=== PATIENT | male | born 1960 | race Caucasian/White ===

== ENCOUNTER 2017-02-08 02:20 | Observation (INO) | payer BC ==
[2017-02-08] MEDS ORDERED: DILTIAZEM 25MG/5ML VIAL IV ONE (02:32)
--- NOTE | 2017-02-08 02:35 | Emergency Department Record ---
History of Present Illness - General Chief Complaint: Chest Pain Stated Complaint: CHEST TIGHTNESS Time Seen by Provider: 02/08/17 02:27 Source: Patient Mode of Arrival: Ambulatory Limitations: No limitations - History of Present Illness Initial Comments: The patient is here due to a one hour hx of chest tightness and palpitations. He has had similar issues in the past with rapid A fib. The patient was here in Aug with the same issues and did get admitted to the hospital. He was eventually transferred for cardioversion. The patient did take a full dose of Aspirin at the onset. MD Complaint: Chest pain Onset/Timin -: Hour(s) Onset: During rest Pain Location: Substernal - Related Data Home Medications Medication Instructions Recorded Confirmed Last Taken Nebivolol HCl [Bystolic] 10 mg PO DAILY 08/27/15 08/27/15 08/26/15 Warfarin Sodium [Warfarin Sodium] 1 mg PO DAILY 08/27/15 08/27/15 Unknown Warfarin Sodium [Warfarin Sodium] 5 mg PO QHS 08/27/15 08/27/15 Unknown Allergies Allergy/AdvReac Type Severity Reaction Status Date / Time Penicillins Allergy Intermediate HIVES Verified 08/27/15 14:19 Tetracyclines Allergy Intermediate PT UNSURE Verified 08/27/15 14:19 OF REACTION Review of Systems Constitutional: Denies: Chills, Fever Eyes: Denies: Eye discharge ENT: Denies: Congestion Respiratory: Denies: Cough Cardiovascular: Denies: Arrhythmia, Chest pain Endocrine: Denies: Fatigue Gastrointestinal: Denies: Abdominal pain Genitourinary: Denies: Dysuria Musculoskeletal: Denies: Back pain Skin: Denies: Bruising Past Medical History - SOCIAL HISTORY Smoking Status: Former smoker - RESPIRATORY Hx Respiratory Disorders: No - CARDIOVASCULAR Hx Cardio Disorders: Yes Hx Abnormal EKG: Yes Hx Deep Vein Thrombosis: Yes Hx Irregular Heartbeat: Yes Comment:: pulmonary embolism - NEURO Hx Neuro Disorders: No - GI Hx GI Disorders: Yes Hx Reflux: Yes Hx Ulcer: Yes - Hx Genitourinary Disorders: No - ENDOCRINE Hx Endocrine Disorders: Yes Hx Diabetes: Yes (type 2) - MUSCULOSKELETAL Hx Musculoskeletal Disorders: No - PSYCH Hx Psych Problems: No - HEMATOLOGY/ONCOLOGY Hx Hematology/Oncology Disorders: Yes Hx Cancer: Yes (basal cell in catholic) Hx Chemotherapy: No Hx Radiation Therapy: No Family Medical History Hx Diabetes: Father, Mother Hx Heart Disease: Mother Physical Exam - General General Appearance: Alert, Oriented x3, Cooperative, No acute distress - Head Head exam: Atraumatic, Normocephalic, Normal inspection - Eye Eye exam: Normal appearance, PERRL - ENT Throat exam: Normal inspection. negative: Tonsillar erythema, Tonsillar exudate - Neck Neck exam: Normal inspection, Full ROM. negative: Tenderness - Respiratory Respiratory exam: Normal lung sounds bilaterally. negative: Respiratory distress - Cardiovascular Cardiovascular Exam: Irregular rhythm, Tachycardia. negative: Regular rate - GI/Abdominal GI/Abdominal exam: Soft, Normal bowel sounds. negative: Tenderness - Extremities Extremities exam: Normal inspection, Full ROM, Normal capillary refill. negative: Tenderness - Neurological Neurological exam: Alert, Normal gait. negative: Abnormal gait, Motor sensory deficit - Psychiatric Psychiatric exam: negative: Anxious, Depressed Course Vital Signs 02/08/17 02:25 Temperature 97.9 F Pulse Rate [ 152 H Pulse Ox Probe] Respiratory 20 Rate Blood Pressure 140/126 [Left Arm] Pulse Ox 97 - Reevaluation(s) Reevaluation #1: The patient is doing much better at this time. His HR is now 90-100 and he feels much better. His chest discomfort is almost gone at this time. His BP is also improved to 139/87. 02/08/17 02:48 02/08/17 02:49 Reevaluation #2: The patient is doing very well at this time. His HR is well controlled and he still is feeling VERY mild chest discomfort at a 1/10. I believe the discomfort may be just the irregular palpitations that the patient is experiencing. He denies any SOB, ANGELIA, sweating or nausea. Upon further questioning of the patient he did not need electrical cardioversion after he was transferred to [facility] [place] ago and converted back to NSR on his own. 02/08/17 03:26 Reevaluation #3: 2nd EKG: Afib at 107, LAFB, Prob LVH, Neg for ischemic changes. 02/08/17 03:28 Reevaluation #4: The patient is doing very well. He does agree to the admission to the hospital. We will admit him to Dr. Loving. 02/08/17 03:44 Medical Decision Making - Data Complexity MDM Data: Labs Ordered and/or Reviewed, X-Ray Ordered and/or Reviewed, EKG Ordered and/or Reviewed - Lab Data Result diagrams: 02/08/17 02:30 02/08/17 02:30 - EKG Data -: EKG Interpreted by Me (Rapid A fib at 150's. ) EKG: Unchanged From Previous, Abnormal EKG - Radiology Data Radiology results: Report reviewed (CXR: No acute dz.) Disposition Disposition: Admit Clinical Impression: Atrial fibrillation with rapid ventricular response Disposition: Still a Patient at [facility] Decision to Admit: Admit from ER Decision to Admit Date: 02/08/17 Decision to Admit Time: 03:45 Accepting Physician: Fabienne Time Discussed w/Accepting Physician: 03:45 Condition: (2) Stable Forms: Patient Portal Access Time of Disposition: 03:45
[2017-02-08 02:44] LABS: BASO % 0.4 % (0-6); HEMATOCRIT 46.8 % (42.0-52.0); HEMOGLOBIN 16.5 gm/dl (14.0-18.0); LYMPH % 32.6 % (16-45); MEAN CELL VOLUME 84.6 fl (81-97); MEAN CORPUSCULAR HEMOGLOBIN 29.8 pg (27-33); MEAN CORPUSCULAR HGB CONC 35.3 g/dl (32-36); MEAN PLATELET VOLUME 10.3 fl (7.4-10.4); PLATELET COUNT 334 K/uL (130-400); RED BLOOD COUNT 5.53 M/uL (4.40-5.70); RED CELL DISTRIBUTION WIDTH 13.3 % (11.5-14.5); WHITE BLOOD COUNT W/O DIFF 11.1 K/uL (4.2-12.2)
[2017-02-08] MEDS ORDERED: DILTIAZEM HCL 125 MG in 0.9 % SODIUM CHLORIDE 100ML 100 ML IV SCH (02:45)
[2017-02-08 02:55] LABS: ANION GAP 9.7 (7-16); BLOOD UREA NITROGEN 13 mg/dL (9-20); CARBON DIOXIDE 25.3 mmol/L (22-30); CREATINE PHOSPHOKINASE 83 U/L (55-170); CREATININE 0.7 mg/dL (0.66-1.25); EST GLOMERULAR FILTRATION RATE > 60 ml/min; GLUCOSE,RANDOM 369 mg/dL (70-110)
[2017-02-08 02:57] LABS: INR 1.19; PARTIAL THROMBOPLASTIN TIME 28.5 SECONDS (24.5-39.1); PROTHROMBIN TIME (PATIENT) 13.4 SECONDS (9.5-12.1)
[2017-02-08] MEDS ORDERED: MORPHINE SULFATE 5 MG/ML PFS IVP ONE ×2 (02:57→03:24)
[2017-02-08 03:07] LABS: CKMB 1.2 ug/L (0-6)
[2017-02-08 03:08] LABS: TROPONIN I < 0.012 ng/mL (0.00-0.034)
[2017-02-08] MEDS ORDERED: ONDANSETRON HCL IV 4 MG/2 ML VIAL IVP ONE (03:25)
[2017-02-08] MEDS ORDERED: HEPARIN SODIUM 1000 UNIT/1 ML 10ML VIAL IVP ONE ×3 (03:25→18:43)
[2017-02-08] MEDS ORDERED: HEPARIN SODIUM/D5W 25,000 UNITS in DEXTROSE 5 % IN WATER 1 BAG IV SCH ×2 (03:30)
[2017-02-08] MEDS ORDERED: ACETAMINOPHEN 500 MG TABLET PO PRN (04:33)
[2017-02-08 07:43] LABS: CKMB 0.9 ug/L (0-6)
[2017-02-08 07:45] LABS: TROPONIN I < 0.012 ng/mL (0.00-0.034)
[2017-02-08] MEDS ORDERED: WARFARIN 5 MG TAB PO ONE (09:07)
[2017-02-08] MEDS: ASPIRIN 325 MG TAB ENTERIC-COATED PO SCH (09:48)
[2017-02-08] MEDS ORDERED: LEVEMIR FLEXTOUCH 100 UNIT/ML INSULIN PEN SQ SCH (10:00)
[2017-02-08] MEDS: DILTIAZEM HCL 120 MG ER CAPSULE PO SCH (10:08)
[2017-02-08 10:42] LABS: INR 1.19; PARTIAL THROMBOPLASTIN TIME 32.8 SECONDS (24.5-39.1); PROTHROMBIN TIME (PATIENT) 13.5 SECONDS (9.5-12.1)
[2017-02-08] MEDS: HEPARIN SODIUM/D5W 25,000 UNITS in DEXTROSE 5 % IN WATER 1 BAG IV SCH ×4 (11:17→23:02)
[2017-02-08] MEDS: NEBIVOLOL HCL 10 MG PO SCH (11:41)
[2017-02-08] MEDS: NOVOLOG FLEXPEN (INSULIN ASPART) 100 UNITS/ML SQ SCH ×2 (12:11→18:29)
[2017-02-08 14:57] LABS: CKMB 0.8 ug/L (0-6)
[2017-02-08 15:02] LABS: TROPONIN I < 0.012 ng/mL (0.00-0.034)
[2017-02-09] MEDS ORDERED: HEPARIN SODIUM 1000 UNIT/1 ML 10ML VIAL IVP ONE ×2 (03:09→08:09)
[2017-02-09 07:06] LABS: INR 1.49; PROTHROMBIN TIME (PATIENT) 16.8 SECONDS (9.5-12.1)
--- NOTE | 2017-02-09 07:49 | RADIOLOGY REPORT ---
EXAM: PORTABLE CHEST HISTORY: PATIENT HAS CHEST PAIN. TECHNIQUE: A single AP portable view of the chest was provided with a comparison study dated 07/04/08. FINDINGS: The cardiac silhouette is magnified. Mild tortuosity of the thoracic aorta is noted. The ayad appear unremarkable. There is no radiographic evidence of a focal infiltrate, pleural effusion, or pneumothorax. IMPRESSION: STABLE RADIOGRAPHIC APPEARANCE OF THE CHEST WITH RESPECT TO THE PRIOR EXAMINATION. JOB NUMBER: [id number] MTDD
[2017-02-09] MEDS: NOVOLOG FLEXPEN (INSULIN ASPART) 100 UNITS/ML SQ SCH ×2 (08:00→12:32)
[2017-02-09] MEDS ORDERED: WARFARIN 5 MG TAB PO ONE (09:03)
[2017-02-09] MEDS ORDERED: LEVEMIR FLEXTOUCH 100 UNIT/ML INSULIN PEN SQ SCH (10:00)
[2017-02-09] MEDS: ASPIRIN 325 MG TAB ENTERIC-COATED PO SCH (10:26)
[2017-02-09] MEDS: DILTIAZEM HCL 120 MG ER CAPSULE PO SCH (10:26)
[2017-02-09] MEDS: NEBIVOLOL HCL 10 MG PO SCH (14:45)
--- NOTE | 2017-02-09 15:14 | History and Physical Report ---
DATE OF EVALUATION: 02/08/2017 at about 9 a.m. CHIEF COMPLAINT: This 56-year-old male presented to the Emergency Department today at about 2 a.m. He stated about an hour before coming in, he felt his heart racing and he felt palpitations, maybe some discomfort in his chest. He presented to the Emergency Department and seen by Dr. Murphy, who slowed his heart rate down with a Cardizem drip, started on a heparin drip, and admitted him into the hospital for serial cardiac enzymes. His primary is Dr. Keenan. He has not seen a erp programmer in a long time, and I am not sure if he has seen one in 2015, but he has not followed up with them. Patient is noncompliant with taking medications. His Coumadin levels are low. He states he has not had his Levemir insulin for 3 weeks, and he just does not like taking medications. He took his full dose of Coumadin when this episode of fast heart rate came in today at 2 a.m. PAST MEDICAL HISTORY: He has a history of atrial fibrillation in the past. In August 2015, he went to [facility]. They were going to convert him to sinus rhythm, however he converted on his own and he was placed on Coumadin. He has been on Coumadin for a long time for blood clots in his legs and maybe in his chest too. He had a pulmonary embolism x 2 in 2007 and 2009. He has had history of atrial fibrillation. He also had deep venous thrombosis in his leg in the past. He has hypertension and diabetes mellitus. GERD. Stomach ulcer in the past. Diabetes type 2. 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 PAST SURGICAL HISTORY: Femoral artery surgery. Basal cell removed from his skin cancer on the head. Tonsils as a child. MEDICATIONS ON ADMISSION: Coumadin 5 mg to 6 mg a day. His doctor has told him to take 6, but he has been at 5. I am questioning how reliable he is at taking it. Bystolic 10 mg daily. Levemir insulin 70 units in the morning; however, he has not taken that for 3 weeks. ALLERGIES: Penicillin and tetracycline. FAMILY PSYCHOSOCIAL HISTORY: He drinks 2 fifths in a week. He is a former smoker. Denies any illegal drug use. FAMILY HISTORY: Father and mother have diabetes, and heart disease with mother. REVIEW OF SYSTEMS: HEENT: No upper respiratory infection symptoms, cough, cold, or congestion. Cardiovascular: See Chief Complaint. He had irregular heart rate, fast rhythm, and he has had atrial fibrillation in the past, and some chest discomfort with the fast heart rate. Respiratory: No cough, cold or congestion. Gastrointestinal: No nausea, vomiting, diarrhea, black stools, or bloody stools. He is overweight. Genitourinary: No dysuria, hematuria, frequency, or burning on urination. Musculoskeletal: He has some diffuse joint pain, but he is moving all 4 extremities. Neurologic: No CVA, paralysis, or paresthesias. Endocrine: He has diabetes type 2. Integument: No rash, ulcers, changes in moles, or yellow skin. PHYSICAL EXAMINATION: VITAL SIGNS: Height is 5'10". Weight is 296 pounds. Temperature 98.1. Pulse 83. Blood pressure 121/90. Respiratory rate 20. Pulse ox 98% on room air. HEENT: Pupils equal, round, and reactive to light and accommodation. Extraocular muscles intact. Throat is clear. Nose is clear. Tympanic membranes deluca. NECK: Supple. No jugular venous distention. No hepatojugular reflux. No carotid bruits. Thyroid is smooth. CARDIOVASCULAR: Irregular rate and rhythm. No rubs, clicks or gallops. His rate is now between 80 and 90. RESPIRATORY: Clear to auscultation. Breath sounds equal bilaterally. ABDOMEN: Soft, nontender, no hepatosplenomegaly. No masses or tenderness. Bowel sounds active. No bruits. He is overweight. EXTREMITIES: No pitting edema. No cyanosis or clubbing. Full range of motion. Peripheral pulses good. BREASTS: Normal male breasts. GENITALIA: Deferred. RECTAL: Deferred. NEUROLOGIC: Cranial nerves II-XII intact. No gross deficits. Sensation normal. Strength normal. Deep tendon reflexes equal bilaterally. Babinski is negative. MENTAL STATUS: Alert and oriented x3. IMPRESSION: 1. Atrial fibrillation with a fast response, controlled with Cardizem drip. Will switch over to oral Cardizem 120 mg CD and once a day. Stop the Cardizem drip. 2. Diabetes mellitus type 2. He is noncompliant. Has not had his Levemir insulin in 3 weeks. 3. Coumadin therapy, which he is probably not compliant with this too. He takes this for probably 2 things: One, he has had multiple PEs and a DVT many years ago in 2007 and 2009, and because of his atrial fibrillation episodes. 4. Hypertension. 5. Alcohol abuse. PLAN: Will discontinue the Cardizem drip and start Cardizem oral CD 120. Will start his Levemir insulin back up and coverage to scale. Will consult Cardiology tomorrow. STEVE
--- NOTE | 2017-02-09 15:31 | Discharge Note ---
VTE H&P Assessment - Risk for VTE Risk for VTE: Yes Risk Level: Moderate Risk Assessment Date: 02/08/17 Risk Assessment Time: 09:00 VTE Orders Placed or Will Be Placed: Yes Discharge Medications - Discharge Medications Home Medications: Ambulatory Orders Nebivolol HCl [Bystolic] 10 mg PO DAILY 08/27/15 [Last Taken 08/26/15] Warfarin Sodium 1 mg PO DAILY 08/27/15 [Last Taken Unknown] Warfarin Sodium 5 mg PO QHS 08/27/15 [Last Taken Unknown] Acetaminophen [Tylenol 500Mg Tab] 500 mg PO Q6H PRN #0 tablet 02/09/17 [Last Taken Unknown] Diltiazem HCl [Cardizem Cd] 120 mg PO DAILY #30 cap.er.24h 02/09/17 [Last Taken Unknown] Insulin Detemir [Levemir Flextouch] 70 unit SQ QAM syringe 02/09/17 [Last Taken Unknown] Discharge Note - Date Date of Discharge Note: 02/09/17 Disposition: Home, Self-Care Condition: (1) Good Additional Instructions: follow up with Dr. zazueta in one week follow up with the coumadin clinic in one week in [place] stop alcohol Prescriptions: Diltiazem HCl [Cardizem Cd] 120 mg PO DAILY #30 cap.er.24h Forms: Patient Portal Access Activity at Discharge: Increase Activity as Tolerated
--- NOTE | 2017-02-09 15:56 | History & Physical ---
History of Present Illness - Date of Service Date of Service for History & Physical: 02/09/17 - History of Present Illness Admitting Diagnosis: 1. Afib with RVR. Travel Screening - Travel/Exposure Within Last 30 Days Have you traveled within the last 30 days?: No - Travel/Exposure Within Last Year Have you traveled outside the [place] in the last year?: No - Additonal Travel Details Have you been exposed to anyone with a communicable illness?: No - Travel Symptoms Symptom Screening: None Review of Systems Constitutional: Denies: Chills, Fever Eyes: Denies: Eye discharge ENT: Denies: Congestion Respiratory: Denies: Cough Cardiovascular: Denies: Arrhythmia, Chest pain Endocrine: Denies: Fatigue Gastrointestinal: Denies: Abdominal pain Genitourinary: Denies: Dysuria Musculoskeletal: Denies: Back pain Skin: Denies: Bruising Past Medical History - SOCIAL HISTORY Smoking Status: Former smoker Alcohol Use: Heavy Alcohol Use Comment: pt states he drinks "a couple fifths a week" Drug Use: None - RESPIRATORY Hx Respiratory Disorders: No Hx Pulmonary Embolism: Yes (x2 2007, and 2009) - CARDIOVASCULAR Hx Cardio Disorders: Yes Hx Abnormal EKG: Yes Hx Deep Vein Thrombosis: Yes Hx Irregular Heartbeat: Yes Comment:: pulmonary embolism - NEURO Hx Neuro Disorders: No - GI Hx GI Disorders: Yes Hx Reflux: Yes Hx Ulcer: Yes - Hx Genitourinary Disorders: No - ENDOCRINE Hx Endocrine Disorders: Yes Hx Diabetes: Yes (type 2) - MUSCULOSKELETAL Hx Musculoskeletal Disorders: No - PSYCH Hx Psych Problems: No - HEMATOLOGY/ONCOLOGY Hx Hematology/Oncology Disorders: Yes Hx Cancer: Yes (basal cell in quaker) Hx Chemotherapy: No Hx Radiation Therapy: No Family Medical History Any Significant Family History?: Yes Hx Diabetes: Father, Mother Hx Heart Disease: Mother H&P Meds/Allergies - Allergies Allergies: Allergies Allergy/AdvReac Type Severity Reaction Status Date / Time Penicillins Allergy Intermediate HIVES Verified 08/27/15 14:19 Tetracyclines Allergy Intermediate PT UNSURE Verified 08/27/15 14:19 OF REACTION - Home Medications Home Medications Medication Instructions Recorded Confirmed Last Taken Nebivolol HCl [Bystolic] 10 mg PO DAILY 08/27/15 08/27/15 08/26/15 Warfarin Sodium 1 mg PO DAILY 08/27/15 08/27/15 Unknown Warfarin Sodium 5 mg PO QHS 08/27/15 08/27/15 Unknown Previous Rx's Medication Instructions Recorded Acetaminophen [Tylenol 500Mg Tab] 500 mg PO Q6H PRN #0 tablet 02/09/17 Diltiazem HCl [Cardizem Cd] 120 mg PO DAILY #30 cap.er.24h 02/09/17 Insulin Detemir [Levemir Flextouch] 70 unit SQ QAM syringe 02/09/17 - Active Medications Active Medications: Current Medications Acetaminophen (Tylenol 500mg Tab) 500 mg PO Q6H PRN PRN Reason: PAIN/TEMP Last Admin: 02/08/17 13:49 Dose: 500 mg Aspirin (Ecotrin (Ec)) 325 mg PO DAILY [facility] Last Admin: 02/09/17 10:26 Dose: 325 mg Diltiazem HCl (Cardizem Cd) 120 mg PO DAILY [facility] Last Admin: 02/09/17 10:26 Dose: 120 mg Heparin Sodium/Dextrose 25,000 (units/ Dextrose) 500 mls @ 24 mls/hr IV TITRATE ALEXANDRO; 1,200 UNITS/HR PRN Reason: Protocol Last Titration: 02/09/17 02:45 Dose: 1,600 units/hr Insulin Aspart (Novolog Flexpen) 1 unit SQ TIDINS [facility] PRN Reason: Protocol Last Admin: 02/09/17 12:32 Dose: 3 unit Insulin Detemir (Levemir Flextouch) 70 unit SQ QAM [facility] Last Admin: 02/09/17 10:27 Dose: 70 unit Non-Formulary Medication (Nebivolol Hcl [Bystolic]) 10 mg PO DAILY [facility] Last Admin: 02/09/17 14:45 Dose: Not Given Physical Exam - Vital Signs Vital Signs: Vital Signs - Last 24 Hrs Temp Pulse Resp BP BP Pulse Ox 02/09/17 09:00 97.6 F 71 18 146/90 95 02/09/17 05:51 97.5 F L 72 16 142/95 96 02/09/17 05:45 96 02/08/17 23:00 97.5 F L 70 12 129/69 97 02/08/17 21:00 71 20 02/08/17 19:40 97.6 F 72 16 112/66 96 02/08/17 18:19 97 02/08/17 18:00 78 18 111/65 96 - General General Appearance: Alert, Oriented x3, Cooperative, No acute distress Limitations: No limitations - Head Head exam: Atraumatic, Normocephalic, Normal inspection - Eye Eye exam: Normal appearance, PERRL - ENT Throat exam: Normal inspection. negative: Tonsillar erythema, Tonsillar exudate - Neck Neck exam: Normal inspection, Full ROM. negative: Tenderness - Respiratory Respiratory exam: Normal lung sounds bilaterally. negative: Respiratory distress - Cardiovascular Cardiovascular Exam: Irregular rhythm, Tachycardia. negative: Regular rate - GI/Abdominal GI/Abdominal exam: Soft, Normal bowel sounds. negative: Tenderness - Extremities Extremities exam: Normal inspection, Full ROM, Normal capillary refill. negative: Tenderness - Neurological Neurological exam: Alert, Normal gait. negative: Abnormal gait, Motor sensory deficit - Psychiatric Psychiatric exam: negative: Anxious, Depressed Results - Labs Result Diagrams: 02/08/17 02:30 02/08/17 02:30 Labs Last 24 Hours: Laboratory Results - last 24 hr 02/08/17 02/08/17 02/08/17 17:30 17:40 21:52 PT INR APTT 36.90 POC Glucose 296 H 312 H 02/09/17 02/09/17 02/09/17 00:50 06:30 06:30 PT 16.8 H INR 1.49 APTT 43.60 H 45.70 H POC Glucose 02/09/17 02/09/17 12:26 13:40 PT INR APTT Cancelled POC Glucose 261 H VTE H&P Assessment - Risk for VTE Risk for VTE: Yes Risk Level: Moderate Risk Assessment Date: 02/08/17 Risk Assessment Time: 09:00 VTE Orders Placed or Will Be Placed: Yes
--- NOTE | 2017-02-09 16:01 | Discharge Note ---
VTE H&P Assessment - Risk for VTE Risk for VTE: Yes Risk Level: Moderate Risk Assessment Date: 02/08/17 Risk Assessment Time: 09:00 VTE Orders Placed or Will Be Placed: Yes Discharge Medications - Discharge Medications Prescriptions: Diltiazem HCl [Cardizem Cd] 120 mg PO DAILY #30 cap.er.24h Home Medications: Ambulatory Orders Nebivolol HCl [Bystolic] 10 mg PO DAILY 08/27/15 [Last Taken 08/26/15] Warfarin Sodium 1 mg PO DAILY 08/27/15 [Last Taken Unknown] Warfarin Sodium 5 mg PO QHS 08/27/15 [Last Taken Unknown] Acetaminophen [Tylenol 500Mg Tab] 500 mg PO Q6H PRN #0 tablet 02/09/17 [Last Taken Unknown] Diltiazem HCl [Cardizem Cd] 120 mg PO DAILY #30 cap.er.24h 02/09/17 [Last Taken Unknown] Insulin Detemir [Levemir Flextouch] 70 unit SQ QAM syringe 02/09/17 [Last Taken Unknown] Discharge Note - Date Date of Discharge Note: 02/09/17 Additional Instructions: follow up with Dr. zazueta in one week. They will call you with appointment time and date. follow up with the coumadin clinic in one week in [place] Stop coumadin until after dental work. Restart Coumadin 6 mg after dental work. stop alcohol Wear compression socks Cardizem CD daily. Start tomorrow. Follow up with dr Lane in one month. Prescriptions: Diltiazem HCl [Cardizem Cd] 120 mg PO DAILY #30 cap.er.24h Forms: Patient Portal Access Activity at Discharge: Increase Activity as Tolerated
--- NOTE | 2017-02-10 15:21 | Medical Records Consult ---
DATE OF CONSULTATION: 02/09/17 HISTORY:Mr. Mahendra Andrews is a 56-year-old male who has had atrial fibrillation for many, many years. He unfortunately drinks about two- fifths of alcohol on a weekly basis and is retired from [employer]. Over the weekend, he imbibed a significant amount more of alcohol than usual. He was unsure of the exact volume. He did develop atrial fibrillation with a rapid ventricular response and with the use of IV Cardizem he converted back to normal sinus rhythm. By the time I saw the patient he had maintained sinus rhythm. He tells me he was in [facility] a year ago and he had a Cardiolite stress test and an echocardiogram; none of these were available today but he tells me that his valves were reported as being normal and that he didn't have any evidence of coronary artery disease. MEDICATIONS: His current medicines are well-documented on the chart by Dr. Loving , which include; Amlodipine 10 mg a day Omeprazole 20 mg a day Potassium Chloride 10 mEq b.i.d. Quinapril Hydrochlorothiazide 12.5 Imodium as needed. Other [id number] medications. FURTHER HISTORY: He has no significant gastrointestinal, neuromuscular, genitourinary disease. He does have diabetes mellitus, not well-controlled. He has no musculoskeletal problems. PHYSICAL EXAMINATION: GENERAL: Well-nourished, well-hydrated, obese, male resting comfortably in bed. Monitor demonstrated normal sinus rhythm with occasional PACs. HEENT: Unremarkable. RESPIRATORY: The patient has normal breath sounds. No rales or rhonchi. CARDIAC: Reveals regular rate and rhythm with no significant cardiac murmurs. The patient has brawny edema of his lower extremities 1+. ABDOMEN: No palpable liver or spleen. IMPRESSION: PAROXYSMAL ATRIAL FIBRILLATION IN A PATIENT THAT HAS HEAVY ALCOHOL INGESTION. RECOMMENDATIONS: 1. The patient really needs to cut back on his alcohol to no more than 14 one ounce drinks per week and have at least two days where he has no alcohol at all or go to AA and stop drinking entirely. None of these are going to happen. 2. We will try to retrieve the echocardiogram and the stress test from [facility] so that we have a complete chart. 3. The best solution for this patient is to go on Betapace, which will give us a better chance of not going back in atrial fibrillation but to do this we need to monitor the QT interval. The patient is unwilling to stay in the hospital and have that done. 4. The patient needs to have the Coumadin therapeutic. His current INR is 1.6. I suggest that he be enrolled in the [facility] where they can do a fingerstick and immediately tell him the next dose of medicines that are necessary. The patient is unwilling to stay in the hospital for Betapace so discharge him on the Cardizem. We will be happy to see him in the office in a month to see if he has maintained rhythm but I would stress that with his alcohol ingestion, the Cardizem is a fairly ineffective way of keeping him in rhythm. He has a much better chance with Betapace in staying in rhythm and if he keeps drinking, he will keep going in and out of atrial fibrillation and no drug will be effective eventually. Eleazar Lane D.O. Date & Time JOB NUMBER: [id number] MTDD
== END 2017-02-09 16:15 | disposition home or self-care (01) ==
LOC: ER 02:20 → MEDSURG 04:12
PROVIDERS: ADMIT Emergency Medicine; ATTEND Emergency Medicine
DX: I48.91 Unspecified atrial fibrillation (principal); Z79.01 Long term (current) use of anticoagulants; E11.9 Type 2 diabetes mellitus without complications; Z79.4 Long term (current) use of insulin; F10.10 Alcohol abuse, uncomplicated; Z86.711 Personal history of pulmonary embolism
CPT/HCPCS: 36416; 71010; 80048; 82550; 82553; 82948; 84484; 85025; 85610; 85730; 93005; 93010; 94760; 94761; 96365; 96366; 96375; 96376; 99217; 99220; 99285; J2405

== ENCOUNTER 2017-10-13 19:03 | Observation (INO) | payer BC ==
[2017-10-13] MEDS ORDERED: ASPIRIN 81 MG CHEWABLE TABLET PO ONE (19:11)
[2017-10-13 19:21] LABS: BASO % 0.3 % (0-6); EOS % 2.2 % (0-6); HEMATOCRIT 47.6 % (42.0-52.0); HEMOGLOBIN 16.9 gm/dl (14.0-18.0); LYMPH % 22.8 % (16-45); MEAN CELL VOLUME 82.2 fl (81-97); MEAN CORPUSCULAR HGB CONC 35.5 g/dl (32-36); MEAN PLATELET VOLUME 9.9 fl (7.4-10.4); MONO % 7.7 % (0-9); PLATELET COUNT 400 K/uL (130-400); RED BLOOD COUNT 5.79 M/uL (4.40-5.70); RED CELL DISTRIBUTION WIDTH 13.5 % (11.5-14.5)
[2017-10-13 19:22] LABS: MEAN CORPUSCULAR HEMOGLOBIN 29.1 pg (27-33)
--- NOTE | 2017-10-13 19:25 | Emergency Department Record ---
History of Present Illness - General Chief Complaint: Chest Pain Stated Complaint: CHEST PAIN Time Seen by Provider: 10/13/17 19:10 Source: Patient Mode of Arrival: Ambulatory Limitations: No limitations - History of Present Illness Initial Comments: 57 yo male presents to ED for evaluation of chest pain symptoms and intermittent atrial fibrillation throughout the day. Patient reports that he felt dizzy and had palpitations around 10:00 AM. Patient reports that he has not been taking his bystolic and metroprolol for several months as prescribed. Patient does report that he takes coumadin for his atrial fibrillation symptoms. Patient also reports nuclear stress testing this past March, is unaware of the results. Patient denies fevers, chills, cough, or leg swelling symptoms. MD Complaint: Chest pain Onset/Timin -: Days(s) Pain Location: Substernal Severity: Moderate Quality: Aching Consistency: Intermittent Improves With: Medication-other Worsens With: Nothing Other Symptoms: Palpitations Treatments Prior to Arrival: Other - Related Data Home Medications Medication Instructions Recorded Confirmed Last Taken Sotalol HCl [Betapace] 80 mg PO BID 10/13/17 10/13/17 Unknown Allergies Allergy/AdvReac Type Severity Reaction Status Date / Time Penicillins Allergy Intermediate HIVES Verified 08/27/15 14:19 Tetracyclines Allergy Intermediate PT UNSURE Verified 08/27/15 14:19 OF REACTION clarithromycin [From Biaxin] Allergy HIVES Verified 10/13/17 19:06 Travel Screening - Travel/Exposure Within Last 30 Days Have you traveled within the last 30 days?: No Review of Systems Constitutional: Denies: Chills, Fever, Malaise, Night sweats Eyes: Denies: Eye discharge, Eye pain ENT: Denies: Congestion, Ear pain, Epistaxis Respiratory: Denies: Cough, Dyspnea Cardiovascular: Reports: Chest pain. Denies: Dyspnea on exertion Endocrine: Denies: Fatigue, Heat or cold intolerance Gastrointestinal: Denies: Abdominal pain, Nausea, Vomiting Genitourinary: Denies: Incontinence, Retention Musculoskeletal: Denies: Arthralgia, Back pain, Gout, Joint swelling Skin: Denies: Bruising, Change in color Neurological: Denies: Abnormal gait, Confusion, Headache Psychiatric: Denies: Anxiety Hematological/Lymphatic: Reports: Easy bleeding, Easy bruising. Denies: Anemia , Blood Clots Past Medical History - SOCIAL HISTORY Smoking Status: Former smoker Alcohol Use: Occasional Drug Use: None - RESPIRATORY Hx Respiratory Disorders: No Hx Pulmonary Embolism: Yes (x2 2008, and 2010) - CARDIOVASCULAR Hx Cardio Disorders: Yes Hx Abnormal EKG: Yes Hx Deep Vein Thrombosis: Yes Hx Irregular Heartbeat: Yes Comment:: pulmonary embolism - NEURO Hx Neuro Disorders: No - GI Hx GI Disorders: Yes Hx Reflux: Yes Hx Ulcer: Yes - Hx Genitourinary Disorders: No - ENDOCRINE Hx Endocrine Disorders: Yes Hx Diabetes: Yes (type 2) - MUSCULOSKELETAL Hx Musculoskeletal Disorders: No - PSYCH Hx Psych Problems: No - HEMATOLOGY/ONCOLOGY Hx Hematology/Oncology Disorders: Yes Hx Cancer: Yes (basal cell in [place]) Hx Chemotherapy: No Hx Radiation Therapy: No Family Medical History Any Significant Family History?: Yes Hx Diabetes: Father, Mother Hx Heart Disease: Mother Physical Exam - General General Appearance: Alert, Oriented x3, Cooperative, Mild distress Limitations: No limitations - Head Head exam: Atraumatic, Normocephalic, Normal inspection Head exam detail: negative: Abrasion, Contusion, English's sign, General tenderness, Hematoma, Laceration - Eye Eye exam: Normal appearance. negative: Conjunctival injection, Periorbital swelling, Periorbital tenderness, Scleral icterus - ENT Ear exam: negative: Auricular hematoma, Auricular trauma Nasal Exam: negative: Active bleeding, Discharge, Dried blood, Foreign body Mouth exam: negative: Drooling, Laceration, Muffled voice, Tongue elevation - Neck Neck exam: Normal inspection. negative: Meningismus, Tenderness - Respiratory Respiratory exam: Normal lung sounds bilaterally. negative: Respiratory distress, Rhonchi, Stridor, Wheezes - Cardiovascular Cardiovascular Exam: Normal rhythm, Normal heart sounds, Tachycardia - GI/Abdominal GI/Abdominal exam: Soft. negative: Distended, Rebound, Rigid, Tenderness - Rectal Rectal exam: Deferred - exam: Deferred - Extremities Extremities exam: Normal inspection. negative: Calf tenderness, Pedal edema, Tenderness - Back Back exam: Denies: CVA tenderness (R), CVA tenderness (L) - Neurological Neurological exam: Alert, Normal gait, Oriented X3 - Psychiatric Psychiatric exam: Normal affect, Normal mood - Skin Skin exam: Normal color. 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 Labs are otherwise grossly unremarkable for an acute process. CXR: No acute process Patient was updated on all results, will admit for further evaluation. Reevaluation #3: 10/13/17 20:10 Case was discussed with Leticia Skaggs, will admit for cardiac evaluation with consult to Dr. Blake. Medical Decision Making - Lab Data Result diagrams: 10/13/17 19:15 10/13/17 19:15 Disposition Disposition: Admit Clinical Impression: Chest pain Qualifiers: Chest pain type: unspecified Qualified Code(s): R07.9 - Chest pain, unspecified Atrial fibrillation Qualifiers: Atrial fibrillation type: paroxysmal Qualified Code(s): I48.0 - Paroxysmal atrial fibrillation Disposition: Still a Patient at [facility] Decision to Admit: Admit from ER Decision to Admit Date: 10/13/17 Decision to Admit Time: 20:12 Condition: (2) Stable Time of Disposition: 20:12 Quality - Quality Measures Quality Measures: N/A - Blood Pressure Screening Does Patient Have Any of the Following: Active Dx of HTN Blood Pressure Classification: Normal BP Reading Systolic Measurement: 109 Diastolic Measurement: 66 Screening for High Blood Pressure: Patient Exclusion, Hx of HTN [[id number]]
[2017-10-13 19:30] LABS: BLOOD UREA NITROGEN 10 mg/dL (6-20)
[2017-10-13 19:31] LABS: CREATININE 0.6 mg/dL (0.7-1.2); EST GLOMERULAR FILTRATION RATE > 60 mL/min; TOTAL PROTEIN 6.9 g/dL (6.6-8.7)
[2017-10-13 19:33] LABS: INR 2.04; PROTHROMBIN TIME (PATIENT) 22.2 SECONDS (9.5-12.1)
[2017-10-13 19:33] LABS: GLUCOSE,RANDOM 339 mg/dL (74-109)
[2017-10-13 19:36] LABS: ALB/GLOB RATIO 1.3 (1.1-1.8); ALBUMIN 3.9 g/dL (4.0-5.0); ALKALINE PHOSPHATASE 167 U/L (40-129); ALT/SGPT 17 U/L (<41); AST/SGOT 15 U/L (10.0-50.0); CREATINE PHOSPHOKINASE 57 U/L (39-308)
[2017-10-13 19:38] LABS: CKMB 2.3 ng/mL (<6.73)
[2017-10-13] MEDS ORDERED: NITROGLYCERIN 0.4MG SL TABLET #25 BTL SL PRN (21:41)
[2017-10-13] MEDS ORDERED: WARFARIN 5 MG TAB PO SCH (22:00)
[2017-10-13] MEDS: SOTALOL HCL 80 MG TABLET PO SCH (22:38)
[2017-10-13] MEDS: 0.9 % SODIUM CHLORIDE 1000ML 1,000 ML IV PRN (22:38)
--- NOTE | 2017-10-14 07:16 | RADIOLOGY REPORT ---
EXAM: CHEST, TWO VIEWS HISTORY: DIFFICULTY IN BREATHING. TECHNIQUE: Frontal and lateral views of the chest were performed. FINDINGS: The heart size is normal. The lung galloway are clear. The osseous structures are normal. Calcifications of the anterior longitudinal ligament. IMPRESSION: NO ACUTE DISEASE PROCESS. JOB NUMBER: [id number] MTDD
[2017-10-14] MEDS: 0.9 % SODIUM CHLORIDE 1000ML 1,000 ML IV PRN (08:44)
[2017-10-14] MEDS ORDERED: ASPIRIN 325 MG TAB ENTERIC-COATED PO SCH (10:00)
[2017-10-14] MEDS ORDERED: NEBIVOLOL HCL 5 MG PO SCH (10:00)
[2017-10-14] MEDS: SOTALOL HCL 80 MG TABLET PO SCH (10:25)
--- NOTE | 2017-10-14 13:13 | History & Physical ---
History of Present Illness - Date of Service Date of Service for History & Physical: 10/14/17 - History of Present Illness Admitting Diagnosis: Chest Pain. Intermittent Atrial Fibrillation History of Present Illness: 57yo male with CC of chest pain with palpitations. He has a history of atrial fibrillation, T2DM uncontrolled, HTN, GERD, DVT, Pulmonary embolism in 2007 which was a saddle emboli and again in 2009. Patient presented to the ED yesterday evening due to intermittent heart palpitations, heart racing and some left sided chest pain. He had been drinking whiskey the night prior and says he had about 6 shots. When he woke up the next morning, he says he could feel himself go into afib around 10am. He says he got worried when he started to feel light-headed and dizzy, but that resolved when his afib resolved. He had 1 more episode like this and decided to come to the ED. While in the ED, patient had EKG that showed him to be in sinus rhythm with rate of 102. No ST changes and no change from previous ekg on 05/13/17. 1st set of CE returned wnl range. CXR showed NAP. INR was therapeutic at 2.04 on coumadin 5mg daily. Patient was admitted for serial enzymes and cardiology was consulted. 10/14/17- Patient states since he arrived in ED he has not had any further episodes of racing heart beat, palpitations, or chest pain. he denies any further dizziness or feeling faint. He admits to not being compliant with either his pcp or agricultural equipment operator's recommendations. He says he has been taking his sotalol 80mg po bid and was also supposed to be taking lisinopril. He ran out of his lisinopril but had some samples of bystolic so took that instead. He says he wasn't taking that one every day, just when he remembered. He is also supposed to be taking a once weekly injection for his DM but has not taken this. He has not been to see his PCP for diabetes since early May. He says he does not follow the diabetic diet and has no intention of doing so. agricultural equipment operator: Dr. Blake pcp: Dr. Keenan Travel Screening - Travel/Exposure Within Last 30 Days Have you traveled within the last 30 days?: No - Travel/Exposure Within Last Year Have you traveled outside the [place] in the last year?: No - Additonal Travel Details Have you been exposed to anyone with a communicable illness?: No Review of Systems Constitutional: Denies: Chills, Fever, Malaise, Night sweats Eyes: Denies: Eye discharge, Eye pain ENT: Denies: Congestion, Ear pain, Epistaxis Respiratory: Denies: Cough, Dyspnea Cardiovascular: Reports: Arrhythmia, Chest pain, Palpitations. Denies: Dyspnea on exertion Endocrine: Denies: Fatigue, Heat or cold intolerance Gastrointestinal: Denies: Abdominal pain, Nausea, Vomiting Genitourinary: Denies: Incontinence, Retention Musculoskeletal: Denies: Arthralgia, Back pain, Gout, Joint swelling Skin: Denies: Bruising, Change in color Neurological: Denies: Abnormal gait, Confusion, Headache Psychiatric: Denies: Anxiety Hematological/Lymphatic: Reports: Easy bleeding, Easy bruising. Denies: Anemia , Blood Clots Past Medical History - SOCIAL HISTORY Smoking Status: Former smoker Alcohol Use: Occasional Drug Use: None - RESPIRATORY Hx Respiratory Disorders: No Hx Pulmonary Embolism: Yes (x2 2007, and 2009) - CARDIOVASCULAR Hx Cardio Disorders: Yes Hx Abnormal EKG: Yes Hx Deep Vein Thrombosis: Yes Hx Irregular Heartbeat: Yes Comment:: pulmonary embolism - NEURO Hx Neuro Disorders: No - GI Hx GI Disorders: Yes Hx Reflux: Yes Hx Ulcer: Yes - Hx Genitourinary Disorders: No - ENDOCRINE Hx Endocrine Disorders: Yes Hx Diabetes: Yes (type 2) - MUSCULOSKELETAL Hx Musculoskeletal Disorders: No - PSYCH Hx Psych Problems: No - HEMATOLOGY/ONCOLOGY Hx Hematology/Oncology Disorders: Yes Hx Cancer: Yes (basal cell in y[place]) Hx Chemotherapy: No Hx Radiation Therapy: No Family Medical History Any Significant Family History?: Yes Hx Diabetes: Father, Mother Hx Heart Disease: Mother H&P Meds/Allergies - Allergies Allergies: Allergies Allergy/AdvReac Type Severity Reaction Status Date / Time Penicillins Allergy Intermediate HIVES Verified 08/27/15 14:19 Tetracyclines Allergy Intermediate PT UNSURE Verified 08/27/15 14:19 OF REACTION clarithromycin [From Biaxin] Allergy HIVES Verified 10/13/17 19:06 - Home Medications Previous Rx's Medication Instructions Recorded Sotalol HCl [Betapace] 80 mg PO BID #60 tablet 10/14/17 - Active Medications Active Medications: Current Medications Aspirin (Ecotrin (Ec)) 325 mg PO DAILY [facility] Last Admin: 10/14/17 10:26 Dose: 325 mg Sodium Chloride () 1,000 mls @ 100 mls/hr IV .Q10H PRN PRN Reason: LARGE VOLUME IV Last Admin: 10/14/17 08:44 Dose: 100 mls/hr Nitroglycerin (Nitrostat 0.4mg) 0.4 mg SL Q5MIN PRN PRN Reason: CHEST PAIN Non-Formulary Medication (Nebivolol Hcl [Bystolic]) 5 mg PO DAILY [facility] Sotalol HCl (Betapace) 80 mg PO BID [facility] Last Admin: 10/14/17 10:25 Dose: 80 mg Warfarin Sodium (Coumadin) 5 mg PO QHS [facility] Last Admin: 10/13/17 22:40 Dose: Not Given Physical Exam - Vital Signs Vital Signs: Vital Signs - Last 24 Hrs Temp Pulse Resp BP BP Pulse Ox 10/14/17 11:28 98.6 F 88 16 130/86 96 10/14/17 10:08 95 10/14/17 09:00 82 14 10/14/17 08:00 97.4 F L 82 14 126/94 97 10/14/17 04:00 98.2 F 74 22 100/71 96 10/13/17 22:00 80 18 - General General Appearance: Alert, Oriented x3, Cooperative, No acute distress Limitations: No limitations - Head Head exam: Atraumatic, Normocephalic, Normal inspection Head exam detail: negative: Abrasion, Contusion, English's sign, General tenderness, Hematoma, Laceration - Eye Eye exam: Normal appearance. negative: Conjunctival injection, Periorbital swelling, Periorbital tenderness, Scleral icterus - ENT Ear exam: negative: Auricular hematoma, Auricular trauma Nasal Exam: negative: Active bleeding, Discharge, Dried blood, Foreign body Mouth exam: negative: Drooling, Laceration, Muffled voice, Tongue elevation - Neck Neck exam: Normal inspection. negative: Meningismus, Tenderness - Respiratory Respiratory exam: Normal lung sounds bilaterally. negative: Respiratory distress, Rhonchi, Stridor, Wheezes - Cardiovascular Cardiovascular Exam: Regular rate, Normal rhythm, Normal heart sounds - GI/Abdominal GI/Abdominal exam: Soft. negative: Distended, Rebound, Rigid, Tenderness - Rectal Rectal exam: Deferred - exam: Deferred - Extremities Extremities exam: Normal inspection. negative: Calf tenderness, Pedal edema, Tenderness - Back Back exam: Denies: CVA tenderness (R), CVA tenderness (L) - Neurological Neurological exam: Alert, Normal gait, Oriented X3 - Psychiatric Psychiatric exam: Normal affect, Normal mood - Skin Skin exam: Normal color. negative: Abrasion Type of lesion: negative: abrasion Results - Labs Result Diagrams: 10/13/17 19:15 10/13/17 19:15 Labs Last 24 Hours: Laboratory Results - last 24 hr 10/14/17 10/14/17 10/14/17 03:15 11:02 11:02 Hemoglobin A1c 14.00 H Troponin T < 0.010 < 0.010 - Imaging and Cardiology chest XR Status: Report reviewed (no acute process) VTE H&P Assessment - Risk for VTE Risk for VTE: Yes Risk Level: High Risk Assessment Date: 10/14/17 Risk Assessment Time: 22:03 VTE Orders Placed or Will Be Placed: Yes Plan - Detailed Diagnosis and Plan (1) Chest pain Status: Acute Qualifiers: Chest pain type: unspecified Qualified Code(s): R07.9 - Chest pain, unspecified Base Code: R07.9 - CHEST PAIN, UNSPECIFIED Comment: 10/16/17- resolved. EKG continues to show patient in NSR with no ST changes. all three sets of CE returned within the normal range. CXR was negative for acute process. I spoke with patient's agricultural equipment operator, Dr. Blake regarding patient. He reports that patient has been noncompliant with his recommendations. He had actually wanted patient to have a diagnostic cardiac cath back in May that patient declined. Dr. Blake did see patient today and once again stated his recommendations, which patient declined. He did say that if patient were to change his mind he would be happy to see him in the future. At this point, patient has been adequately counseled by cardiology and myself and has declined any further evaluations at this time. -plan to discharge as he has refused any further evaluations and has been ruled out with serial enzymes. he agrees to follow up with Dr. Keenan in 1 week (2) Atrial fibrillation Status: Acute Qualifiers: Atrial fibrillation type: paroxysmal Qualified Code(s): I48.0 - Paroxysmal atrial fibrillation Base Code: I48.91 - UNSPECIFIED ATRIAL FIBRILLATION Comment: 10/14/17- Patient has been in NSR since arrival in ED. Dr. Blake recommended that he continue his sotalol 80mg po bid and lifelong anticoagulation therapy with Coumadin INR 2-3. He felt patient could continue his bystolic for his elevated blood pressure but that an ACEI or ARB would also be appropriate. -new script for sotalol sent to pharmacy. Patient tells me he has plenty of his bystolic at home -follow up appointment with Dr. Keenan set up by nursing today -once again, Dr. Blake would be happy to see patient in the future if/when he is ready. Patient voiced understanding. (3) Uncontrolled diabetes mellitus Status: Acute Qualifiers: Diabetes mellitus type: type 2 Diabetes mellitus complication status: with hyperglycemia Diabetes mellitus termite control servicer insulin use: without termite control servicer use Qualified Code(s): E11.65 - Type 2 diabetes mellitus with hyperglycemia Base Code: E11.65 - TYPE 2 DIABETES MELLITUS WITH HYPERGLYCEMIA Comment: 10/16- Based on notes in our system from previous visits and from what patient says, he has not ever had his diabetes under control. I see he has been counseled about the disease process and risks of uncontrolled diabetes the last time he was admitted. I personally counseled him for 15 minutes today regarding his very high risk for cardiovascular, renal, ophthalamic, and neurologic complications with an A1C of 14. I explained that his risk for having an atherosclerotic event including HI and stroke which may lead to is very high. I offered to have our supervisory investigative specialist meet with him today to discuss diabetic diet. I offered him to join the [facility] office of aging path classes and recommended that he allow me to start him back on a glucose lowering agent. Patient voiced his understanding of all of this but refused any of these suggestions. He understands this is going against my recommendation but has agreed to follow up with Dr. Keenan to discuss his diabetes further. Nursing has called and set up that appointment. I included a hand out regarding carbohydrate counting for him and gave him our lawn care specialist's number should he like to join our DM education classes. (4) DVT prophylaxis Status: Acute Base Code: [id number] - Comment: 10/14/17- therapeutic on coumadin -continue 5mg po qhs (5) Full code status Status: Acute Base Code: Z78.9 - OTHER SPECIFIED HEALTH STATUS Comment: - patient is full code
--- NOTE | 2017-10-14 13:21 | Discharge Summary ---
Providers Discharge Summary Date: 10/14/17 Date of admission: 10/13/17 21:30 Expected Date of Discharge: 10/14/17 Attending physician: Ben Jameson Primary care physician: IVETT MCKEON D.O. Physical Exam - Vital Signs Vital Signs: Vital Signs - Last 24 Hrs Temp Pulse Resp BP BP Pulse Ox 10/14/17 11:28 98.6 F 88 16 130/86 96 10/14/17 10:08 95 10/14/17 09:00 82 14 10/14/17 08:00 97.4 F L 82 14 126/94 97 10/14/17 04:00 98.2 F 74 22 100/71 96 10/13/17 22:00 80 18 - General General Appearance: Alert, Oriented x3, Cooperative, No acute distress Limitations: No limitations - Head Head exam: Atraumatic, Normocephalic, Normal inspection Head exam detail: negative: Abrasion, Contusion, English's sign, General tenderness, Hematoma, Laceration - Eye Eye exam: Normal appearance. negative: Conjunctival injection, Periorbital swelling, Periorbital tenderness, Scleral icterus - ENT Ear exam: negative: Auricular hematoma, Auricular trauma Nasal Exam: negative: Active bleeding, Discharge, Dried blood, Foreign body Mouth exam: negative: Drooling, Laceration, Muffled voice, Tongue elevation - Neck Neck exam: Normal inspection. negative: Meningismus, Tenderness - Respiratory Respiratory exam: Normal lung sounds bilaterally. negative: Respiratory distress, Rhonchi, Stridor, Wheezes - Cardiovascular Cardiovascular Exam: Regular rate, Normal rhythm, Normal heart sounds - GI/Abdominal GI/Abdominal exam: Soft. negative: Distended, Rebound, Rigid, Tenderness - Rectal Rectal exam: Deferred - exam: Deferred - Extremities Extremities exam: Normal inspection. negative: Calf tenderness, Pedal edema, Tenderness - Back Back exam: Denies: CVA tenderness (R), CVA tenderness (L) - Neurological Neurological exam: Alert, Normal gait, Oriented X3 - Psychiatric Psychiatric exam: Normal affect, Normal mood - Skin Skin exam: Normal color. negative: Abrasion Type of lesion: negative: abrasion Hospitalization - Hospitalization Admission Diagnosis: Chest Pain. Intermittent Atrial Fibrillation - Problem List/Discharge Diagnosis (1) Atrial fibrillation Status: Acute Discharge Diagnosis: Atrial fibrillation type: paroxysmal Qualified Code(s): I48.0 - Paroxysmal atrial fibrillation Base Code: I48.91 - UNSPECIFIED ATRIAL FIBRILLATION Comment: 10/14/17- Patient has been in NSR since arrival in ED. Dr. Blake recommended that he continue his sotalol 80mg po bid and lifelong anticoagulation therapy with Coumadin INR 2-3. He felt patient could continue his bystolic for his elevated blood pressure but that an ACEI or ARB would also be appropriate. -new script for sotalol sent to pharmacy. Patient tells me he has plenty of his bystolic at home -follow up appointment with Dr. Mckeon set up by nursing today -once again, Dr. Blake would be happy to see patient in the future if/when he is ready. Patient voiced understanding. (2) Chest pain Status: Acute Discharge Diagnosis: Chest pain type: unspecified Qualified Code(s): R07.9 - Chest pain, unspecified Base Code: R07.9 - CHEST PAIN, UNSPECIFIED Comment: 10/16/17- resolved. EKG continues to show patient in NSR with no ST changes. all three sets of CE returned within the normal range. CXR was negative for acute process. I spoke with patient's wind turbine machinist, Dr. Blake regarding patient. He reports that patient has been noncompliant with his recommendations. He had actually wanted patient to have a diagnostic cardiac cath back in May that patient declined. Dr. Blake did see patient today and once again stated his recommendations, which patient declined. He did say that if patient were to change his mind he would be happy to see him in the future. At this point, patient has been adequately counseled by cardiology and myself and has declined any further evaluations at this time. -plan to discharge as he has refused any further evaluations and has been ruled out with serial enzymes. he agrees to follow up with Dr. Mckeon in 1 week (3) Uncontrolled diabetes mellitus Status: Acute Discharge Diagnosis: Diabetes mellitus type: type 2 Diabetes mellitus complication status: with hyperglycemia Diabetes mellitus penitentiary insulin use: without penitentiary use Qualified Code(s): E11.65 - Type 2 diabetes mellitus with hyperglycemia Base Code: E11.65 - TYPE 2 DIABETES MELLITUS WITH HYPERGLYCEMIA Comment: 10/16- Based on notes in our system from previous visits and from what patient says, he has not ever had his diabetes under control. I see he has been counseled about the disease process and risks of uncontrolled diabetes the last time he was admitted. I personally counseled him for 15 minutes today regarding his very high risk for cardiovascular, renal, ophthalamic, and neurologic complications with an A1C of 14. I explained that his risk for having an atherosclerotic event including NH and stroke which may lead to is very high. I offered to have our pharmacy services representative meet with him today to discuss diabetic diet. I offered him to join the [facility] office of aging path classes and recommended that he allow me to start him back on a glucose lowering agent. Patient voiced his understanding of all of this but refused any of these suggestions. He understands this is going against my recommendation but has agreed to follow up with Dr. Mckeon to discuss his diabetes further. Nursing has called and set up that appointment. I included a hand out regarding carbohydrate counting for him and gave him our director medicare sales's number should he like to join our DM education classes. (4) DVT prophylaxis Status: Acute Base Code: [id number] - Comment: 10/14/17- therapeutic on coumadin -continue 5mg po qhs (5) Full code status Status: Acute Base Code: Z78.9 - OTHER SPECIFIED HEALTH STATUS Comment: - patient is full code - Hospitalization Course Disposition: Home, Self-Care Abnormal Labs: Abnormal Lab Results 10/14/17 Range/Units 11:02 Hemoglobin A1c 14.00 H (4.0-6.00) % Condition at Discharge: (2) Stable Discharge Medications - Discharge Medications Prescriptions: Sotalol HCl [Betapace] 80 mg PO BID #60 tablet Home Medications: Ambulatory Orders Nebivolol HCl [Bystolic] 5 mg PO DAILY 08/27/15 [Last Taken 10/12/17 22:00 5 mg] Warfarin Sodium 5 mg PO QHS 08/27/15 [Last Taken 10/13/17 10:00 5 mg] Sotalol HCl [Betapace] 80 mg PO BID #60 tablet 10/14/17 [Last Taken Unknown] Discharge Plan - Discharge Instructions Diet at Discharge: Diabetic Diet Instructions: A-fib (Atrial Fibrillation) (DC), Meal Planning with Diabetes Exchanges (GEN) Additional Instructions: Follow up with Dr. Mckeon on October 22 at 11:00 am. You need to follow up with him regarding your diabetes as soon as possible. Your hemoglobin A1C is 14 which shows that your diabetes is very uncontrolled. If you decide you would like to participate in the [facility] Aging Diabetes path classes please call [phone] Continue sotalol 80mg twice daily continue warfarin 5mg once daily continue bystolic 5mg once daily Dr. Blake recommended that you follow up with him for a cardiac catheterization to further evaluate your heart and chest pain. He would be happy to see you if you call his office and make an appointment to discuss further. Please return to the closest Emergency Department with any new or worsening symptoms. Please follow a diabetic diet. Activity as tolerated. Please call with any questions or concerns Quality Measures - Quality Measures Quality Measures: Atrial Fibrillation & Atrial Flutter: Chronic Anticoagulation Therapy, Documentation of Current Medications in Medical Record, Screening for High Blood Pressure and F/U Documented - Current Medications Quality Measure: Measure #130: Documentation of Current Medications Documentation of Current Medications: <Current Medications Documented/Reviewed> [G8427] - Blood Pressure Screening Quality Measure: Screening for High Blood Pressure and Follow-Up Documented Does Patient Have Any of the Following: Active Dx of HTN Blood Pressure Classification: Pre-Hypertensive BP Reading Systolic Measurement: 138 Diastolic Measurement: 79 Screening for High Blood Pressure: Patient Exclusion, Hx of HTN [G9744] - Atrial Fibrillation and Atrial Flutter Quality Measure: Atrial Fibrillation & Atrial Flutter: Chronic Anticoagulation Therapy Does Patient Have Any of the Following: No CHADS2 Risk Stratification: Prior Stroke/TIA or Systemic Embolism, Hypertension , Diabetes Mellitus Risk Stratification Summary: One or more high risk factors OR more than one moderate risk factor exists. [G8972] Anticoagulation Therapy: <Oral anticoagulant Prescribed> [G8967] - Elder Abuse Suspicion Index EASI Reference Information: Daly KO, Mitzi C, Roselyn D, Jovita Gaspar.Development and validation of a tool to assist physicians identification of elder abuse: The Elder Abuse Suspicion Index (EASI ). Journal of Elder Abuse and Neglect, 2008; 20 (3): 276-300.
== END 2017-10-14 15:20 | disposition home or self-care (01) ==
LOC: ER 19:03 → MEDSURG 21:30
PROVIDERS: ADMIT Internal Medicine; ATTEND Internal Medicine
DX: R07.9 Chest pain, unspecified (principal); I48.0 Paroxysmal atrial fibrillation; E11.65 Type 2 diabetes mellitus with hyperglycemia; I10 Essential (primary) hypertension; Z78.9 Other specified health status; Z87.891 Personal history of nicotine dependence; Z86.711 Personal history of pulmonary embolism; Z86.718 Personal history of other venous thrombosis and embolism
CPT/HCPCS: 71020; 80053; 82550; 82553; 83036; 84484; 85025; 85610; 93005; 93010; 94760; 99220; 99285

== ENCOUNTER 2017-10-15 13:20 | Emergency (ER) | payer BC ==
[2017-10-15] MEDS ORDERED: HUMULIN R 100 UNIT/ML VIAL SC ONE (13:21)
--- NOTE | 2017-10-15 13:46 | Emergency Department Record ---
History of Present Illness - General Chief Complaint: Chest Pain Stated Complaint: CHEST PAIN /AFIB Time Seen by Provider: 10/15/17 13:40 Source: Patient Mode of Arrival: Ambulatory Limitations: No limitations - History of Present Illness Initial Comments: 57 yo male presents with rapid heart rate and chest discomfort. He was discharge from the [facility] inpatient floor yesterday. He was seen by Dr Blake. The patient has a history of recurrent atrial fibrillation. He is on Coumadin. Today starting at 8am he developed the racing palpitations, lightheaded with some chest tightness. No syncope. MD Complaint: Chest pain, Other (Atrial fibrillation) Onset/Timin -: Hour(s) Onset: Awoke with symptoms Pain Location: Substernal, Left chest Severity: Moderate Severity scale (1-10): 4 Quality: Aching, Heaviness Worsens With: Exertion Context: Recent illness - Related Data Previous Rx's Medication Instructions Recorded Sotalol HCl [Betapace] 80 mg PO BID #60 tablet 10/14/17 Allergies Allergy/AdvReac Type Severity Reaction Status Date / Time Penicillins Allergy Intermediate HIVES Verified 10/15/17 13:37 Tetracyclines Allergy Intermediate PT UNSURE Verified 10/15/17 13:37 OF REACTION clarithromycin [From Biaxin] Allergy HIVES Verified 10/15/17 13:37 Travel Screening - Travel/Exposure Within Last 30 Days Have you traveled within the last 30 days?: No - Travel/Exposure Within Last Year Have you traveled outside the [place] in the last year?: No - Additonal Travel Details Have you been exposed to anyone with a communicable illness?: No - Travel Symptoms Symptom Screening: None Review of Systems Constitutional: Denies: Chills, Fever, Malaise, Weakness Eyes: Denies: Eye discharge ENT: Denies: Congestion, Throat pain Respiratory: Reports: Dyspnea. Denies: Cough, Hemoptysis, Stridor, Wheezes Cardiovascular: Reports: Arrhythmia, Chest pain, Dyspnea on exertion, Palpitations. Denies: Edema, Syncope Endocrine: Denies: Fatigue, Polydipsia, Polyuria Gastrointestinal: Denies: Abdominal pain, Diarrhea, Nausea, Vomiting Genitourinary: Denies: Dysuria, Frequency Musculoskeletal: Denies: Arthralgia, Back pain, Joint swelling, Myalgia Skin: Denies: Bruising, Change in color, Rash Neurological: Reports: Vertigo. Denies: Abnormal gait, Headache, Numbness, Seizure, Tingling, Tremors, Weakness Psychiatric: Denies: Anxiety Hematological/Lymphatic: Denies: Blood Clots, Easy bleeding, Easy bruising, Swollen glands Past Medical History - SOCIAL HISTORY Smoking Status: Former smoker Alcohol Use: Occasional Drug Use: None - RESPIRATORY Hx Respiratory Disorders: No Hx Pulmonary Embolism: Yes (x2 2007, and 2009) - CARDIOVASCULAR Hx Cardio Disorders: Yes Hx Abnormal EKG: Yes Hx Deep Vein Thrombosis: Yes Hx Irregular Heartbeat: Yes Comment:: pulmonary embolism - NEURO Hx Neuro Disorders: No - GI Hx GI Disorders: Yes Hx Reflux: Yes Hx Ulcer: Yes - Hx Genitourinary Disorders: No - ENDOCRINE Hx Endocrine Disorders: Yes Hx Diabetes: Yes (type 2) - MUSCULOSKELETAL Hx Musculoskeletal Disorders: No - PSYCH Hx Psych Problems: No - HEMATOLOGY/ONCOLOGY Hx Hematology/Oncology Disorders: Yes 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 negative: Conjunctival injection, Scleral icterus - ENT ENT exam: Normal exam, Mucous membranes moist Ear exam: Normal external inspection Nasal Exam: Normal inspection Mouth exam: Normal external inspection Teeth exam: Normal inspection - Neck Neck exam: Normal inspection, Full ROM. negative: Tenderness - Respiratory Respiratory exam: Normal lung sounds bilaterally. negative: Respiratory distress - Cardiovascular Cardiovascular Exam: Irregular rhythm, Tachycardia. negative: Regular rate, Normal rhythm, Normal heart sounds Peripheral Pulses: 2+: Radial (R), Radial (L) - GI/Abdominal GI/Abdominal exam: Soft. negative: Tenderness - Rectal Rectal exam: Deferred - exam: Deferred - Extremities Extremities exam: Pedal edema. negative: Calf tenderness, Full ROM, Joint swelling, Normal capillary refill, Tenderness - Back Back exam: Reports: Normal inspection, Full ROM. Denies: Muscle spasm, Rash noted, Tenderness - Neurological Neurological exam: Alert, Normal gait, Oriented X3, Reflexes normal - Psychiatric Psychiatric exam: Normal affect, Normal mood - Skin Skin exam: Dry, Intact, Normal color, Warm Course Vital Signs 10/15/17 13:33 Temperature 97.5 F L Pulse Rate 132 H Respiratory 18 Rate Blood Pressure 160/103 Pulse Ox 99 - Reevaluation(s) Reevaluation #1: The labs were reviewed The Glucose is elevated at 384 The Troponin and BNP were in the normal range Given recurrent atrial fibrillation with RVR with Chest Pain I SW Dr Corbin of [facility] for transfer for further work up and cardiology consultation 10/15/17 14:39 10/15/17 14:42 The INR is 1.4 Lovenox ordered given he is subtherapeutic Medical Decision Making - Lab Data Result diagrams: 10/15/17 13:53 10/15/17 13:53 Disposition Disposition: Transfer Clinical Impression: Atrial fibrillation with rapid ventricular response, Chest pain Disposition: Acute Care Hospital Transfer Transfer To: [facility] Reason For Transfer: recurrent atrial fibrillation, CP Accepting Physician: Shaquille Time Discussed w/Accepting Physician: 14:39 Condition: (2) Stable Forms: Patient Portal Access Time of Disposition: 14:39 Quality - Quality Measures Quality Measures: N/A - Blood Pressure Screening Does Patient Have Any of the Following: No Blood Pressure Classification: Hypertensive Reading Systolic Measurement: 160 Diastolic Measurement: 103 Screening for High Blood Pressure: < Pre-Hypertensive BP, F/U Documented > [ G8950] Pre-Hypertensive Follow-up Interventions: Referral to alternative/primary care provider.
[2017-10-15 14:00] LABS: BASO % 0.4 % (0-6); EOS % 1.7 % (0-6); GRAN % 68.9 % (47-80); HEMATOCRIT 46.9 % (42.0-52.0); HEMOGLOBIN 16.6 gm/dl (14.0-18.0); LYMPH % 20.5 % (16-45); MEAN CELL VOLUME 82.4 fl (81-97); MEAN CORPUSCULAR HEMOGLOBIN 29.2 pg (27-33); MEAN CORPUSCULAR HGB CONC 35.4 g/dl (32-36); MEAN PLATELET VOLUME 9.8 fl (7.4-10.4); MONO % 8.5 % (0-9); PLATELET COUNT 383 K/uL (130-400); RED BLOOD COUNT 5.69 M/uL (4.40-5.70); RED CELL DISTRIBUTION WIDTH 13.3 % (11.5-14.5); WHITE BLOOD COUNT W/O DIFF 8.9 K/uL (4.2-12.2)
[2017-10-15 14:14] LABS: BLOOD UREA NITROGEN 13 mg/dL (6-20); CREATININE 0.5 mg/dL (0.7-1.2); EST GLOMERULAR FILTRATION RATE > 60 mL/min; INR 1.48; PARTIAL THROMBOPLASTIN TIME 31.9 SECONDS (24.5-39.1)
[2017-10-15 14:17] LABS: GLUCOSE,RANDOM 384 mg/dL (74-109)
[2017-10-15 14:20] LABS: CREATINE PHOSPHOKINASE 69 U/L (39-308)
[2017-10-15 14:22] LABS: CKMB 2.8 ng/mL (<6.73)
[2017-10-15] MEDS ORDERED: HUMULIN R 100 UNIT/ML VIAL SQ ONE (14:33)
[2017-10-15] MEDS ORDERED: ENOXAPARIN 100 MG/ML SYR SQ ONE (14:42)
[2017-10-15] MEDS ORDERED: DILTIAZEM HCL 125 MG in 0.9 % SODIUM CHLORIDE 100ML 100 ML IV SCH (14:45)
== END 2017-10-15 17:10 | disposition short-term general hospital (02) ==
LOC: ER 13:20
DX: I48.0 Paroxysmal atrial fibrillation (principal); R07.9 Chest pain, unspecified; E11.9 Type 2 diabetes mellitus without complications; I10 Essential (primary) hypertension; Z79.4 Long term (current) use of insulin; Z87.891 Personal history of nicotine dependence
CPT/HCPCS: 99285 ×2; 96372; 96365; 96366; 82550; 85025; 85730; 85610; 82553; 80048; 84484; 83880; 93005; 93010; J1815; J1650

== ENCOUNTER 2017-10-18 13:54 | Emergency (ER) | payer BC ==
[2017-10-18] MEDS ORDERED: ASPIRIN 81 MG CHEWABLE TABLET PO ONE (13:59)
--- NOTE | 2017-10-18 14:15 | Emergency Department Record ---
History of Present Illness - General Chief Complaint: Chest Pain Stated Complaint: CHEST PAIN Time Seen by Provider: 10/18/17 13:57 Source: Patient Mode of Arrival: Ambulatory Limitations: No limitations - History of Present Illness Initial Comments: 57 yo male returns to ED for evalaution chest pain and palpitations this afternoon. Patient reports taking Nitro ox 3 for his pain symptoms, but has also lowered his Bystolic on his own. Patient reports that he drank a cup of coffee today which precipitated his symptoms. Patient reports that he was recently seen and admitted to [facility], then returned to [facility] ED and was transferred to [facility] for atrial fibrillation 10/16. Patient has been taking his coumadin as directed. MD Complaint: Chest pain Onset/Timin -: Hour(s) Pain Location: Substernal Pain Radiation: None Severity: Moderate Quality: Aching Consistency: Constant Improves With: Nitroglycerin Worsens With: Nothing - Related Data Home Medications Medication Instructions Recorded Confirmed Last Taken Aspirin 325 mg PO DAILY 10/18/17 10/18/17 10/18/17 Metoprolol Tartrate [Lopressor] 25 mg PO Q12H 10/18/17 10/18/17 10/18/17 Previous Rx's Medication Instructions Recorded Sotalol HCl [Betapace] 80 mg PO BID #60 tablet 10/14/17 Allergies Allergy/AdvReac Type Severity Reaction Status Date / Time Penicillins Allergy Intermediate HIVES Verified 10/15/17 13:37 Tetracyclines Allergy Intermediate PT UNSURE Verified 10/15/17 13:37 OF REACTION clarithromycin [From Biaxin] Allergy HIVES Verified 10/15/17 13:37 Review of Systems Constitutional: Denies: Chills, Fever, Malaise, Night sweats Eyes: Denies: Eye discharge, Eye pain ENT: Denies: Congestion, Ear pain, Epistaxis Respiratory: Denies: Cough, Dyspnea Cardiovascular: Reports: Chest pain, Palpitations. Denies: Dyspnea on exertion Endocrine: Denies: Fatigue, Heat or cold intolerance Gastrointestinal: Denies: Abdominal pain, Nausea, Vomiting Genitourinary: Denies: Incontinence, Retention Musculoskeletal: Denies: Arthralgia, Back pain, Gout, Joint swelling Skin: Denies: Bruising, Change in color Neurological: Denies: Abnormal gait, Confusion, Headache, Seizure Psychiatric: Denies: Anxiety Hematological/Lymphatic: Reports: Easy bleeding, Easy bruising. Denies: Anemia , Blood Clots Past Medical History - SOCIAL HISTORY Smoking Status: Former smoker Drug Use: None - RESPIRATORY Hx Respiratory Disorders: No Hx Pulmonary Embolism: Yes (x2 2007, and 2009) - CARDIOVASCULAR Hx Cardio Disorders: Yes Hx Abnormal EKG: Yes Hx Deep Vein Thrombosis: Yes Hx Irregular Heartbeat: Yes Comment:: pulmonary embolism - NEURO Hx Neuro Disorders: No - GI Hx GI Disorders: Yes Hx Reflux: Yes Hx Ulcer: Yes - Hx Genitourinary Disorders: No - ENDOCRINE Hx Endocrine Disorders: Yes Hx Diabetes: Yes (type 2) - MUSCULOSKELETAL Hx Musculoskeletal Disorders: No - PSYCH Hx Psych Problems: No - HEMATOLOGY/ONCOLOGY Hx Hematology/Oncology Disorders: Yes Hx Cancer: Yes (basal cell in anabaptist) Hx Chemotherapy: No Hx Radiation Therapy: No Family Medical History Hx Diabetes: Father, Mother Hx Heart Disease: Mother Physical Exam - General General Appearance: Alert, Oriented x3, Cooperative, Mild distress Limitations: No limitations - Head Head exam: Atraumatic, Normocephalic, Normal inspection Head exam detail: negative: Abrasion, Contusion, English's sign, General tenderness, Hematoma, Laceration - Eye Eye exam: Normal appearance. negative: Conjunctival injection, Periorbital swelling, Periorbital tenderness, Scleral icterus - ENT Ear exam: negative: Auricular hematoma, Auricular trauma Nasal Exam: negative: Active bleeding, Discharge, Dried blood, Foreign body Mouth exam: negative: Drooling, Laceration, Tongue elevation Throat exam: negative: Tonsillar erythema, Tonsillomegaly, R peritonsillar mass , L peritonsillar mass - Neck Neck exam: Normal inspection. negative: Meningismus, Tenderness - Respiratory Respiratory exam: Normal lung sounds bilaterally. negative: Rales, Respiratory distress, Rhonchi, Stridor - Cardiovascular Cardiovascular Exam: Irregular rhythm, Tachycardia - GI/Abdominal GI/Abdominal exam: Soft. negative: Rebound, Rigid, Tenderness - Rectal Rectal exam: Deferred - exam: Deferred - Extremities Extremities exam: Normal inspection. negative: Pedal edema, Tenderness - Back Back exam: Denies: CVA tenderness (R), CVA tenderness (L) - Neurological Neurological exam: Alert, Normal gait, Oriented X3 - Psychiatric Psychiatric exam: Normal affect, Normal mood - Skin Skin exam: Normal color. negative: Abrasion Type of lesion: negative: abrasion Course - Reevaluation(s) Reevaluation #1: 10/18/17 14:07 EKG: Atrial Fibrillation 129 LAD, irregular R-R intervals Nonspecific ST-T wave changes Reevaluation #2: 10/18/17 14:50 Labs reviewed, Glucose 472, INR 1.29. Troponin appears negative for myocardial injury. Dr. Covington paged for cardiology consultation. 10/18/17 14:53 Case was discussed with Dr. Covington, would prefer D-Service admission. Cardizem increased to 7.5 mg/hr, pulse 117-122. 10/18/17 15:03 Reevaluation #3: 10/18/17 14:57 Case was discussed with Dr. Kennedy (D-Service attending), will accept transfer for cardiac evaluation. Lovenox 100 SQ and Insulin 10 Units ordered IV for prophylaxis and subtherapeutic INR as well as Hyperglycemia prior to transfer. CXR: No acute process. Reevaluation #4: 10/18/17 15:22 Patient reassessed, BP 115/80, pulse 110's. Cardizem increased to 10 mg/hr. Reevaluation #5: 10/18/17 16:08 EMS is present for transfer, patient greatly improved. Medical Decision Making - Lab Data Result diagrams: 10/18/17 14:21 10/18/17 14:21 Critical Care Time Critical Care Time: Yes Total Critical Care Time: 60 Critical Care Time: Evaluation and treatment for ACS and atrial fibrillation with RVR, treatment of hyperglycemia, titration of Cardizem qttp, consultation with cardiology and medicine at [facility] to arrange transfer, discussion with family, and frequent reassessments. Disposition Disposition: Transfer Clinical Impression: Atrial fibrillation with rapid ventricular response Chest pain Qualifiers: Chest pain type: unspecified Qualified Code(s): R07.9 - Chest pain, unspecified Uncontrolled diabetes mellitus Qualifiers: Diabetes mellitus type: other specified (including SAV) Diabetes mellitus complication status: without complication Diabetes mellitus extermination inspector insulin use: unspecified extermination inspector insulin use status Qualified Code(s): E13.65 - Other specified diabetes mellitus with hyperglycemia Disposition: Acute Care Hospital Transfer Transfer To: [facility] Reason For Transfer: Atrial Fibrillation with RVR Accepting Physician: Yasmani Time Discussed w/Accepting Physician: 14:53 Condition: (2) Stable Forms: Patient Portal Access Time of Disposition: 14:53 Quality - Quality Measures Quality Measures: N/A - Blood Pressure Screening Does Patient Have Any of the Following: Active Dx of HTN Blood Pressure Classification: Normal BP Reading Systolic Measurement: 113 Diastolic Measurement: 77 Screening for High Blood Pressure: Patient Exclusion, Hx of HTN [G9744]
[2017-10-18 14:29] LABS: BASO % 0.3 % (0-6); EOS % 2.2 % (0-6); GRAN % 67.9 % (47-80); HEMOGLOBIN 16.2 gm/dl (14.0-18.0); LYMPH % 20.3 % (16-45); MEAN CELL VOLUME 82.9 fl (81-97); MEAN CORPUSCULAR HEMOGLOBIN 29.2 pg (27-33); MEAN CORPUSCULAR HGB CONC 35.2 g/dl (32-36); MONO % 9.3 % (0-9); PLATELET COUNT 385 K/uL (130-400); RED BLOOD COUNT 5.55 M/uL (4.40-5.70); RED CELL DISTRIBUTION WIDTH 13.3 % (11.5-14.5); WHITE BLOOD COUNT W/O DIFF 8.8 K/uL (4.2-12.2)
[2017-10-18] MEDS ORDERED: DILTIAZEM HCL 125 MG in 0.9 % SODIUM CHLORIDE 100ML 100 ML IV SCH (14:30)
[2017-10-18 14:38] LABS: INR 1.29
[2017-10-18 14:40] LABS: BLOOD UREA NITROGEN 12 mg/dL (6-20); CREATININE 0.6 mg/dL (0.7-1.2); EST GLOMERULAR FILTRATION RATE > 60 mL/min
[2017-10-18 14:41] LABS: TOTAL PROTEIN 6.5 g/dL (6.6-8.7)
[2017-10-18 14:46] LABS: ALB/GLOB RATIO 1.5 (1.1-1.8); ALBUMIN 3.9 g/dL (4.0-5.0); ALKALINE PHOSPHATASE 169 U/L (40-129); ALT/SGPT 19 U/L (<41); AST/SGOT 20 U/L (10.0-50.0)
[2017-10-18] MEDS ORDERED: ENOXAPARIN 100 MG/ML SYR SQ ONE (14:59)
[2017-10-18] MEDS ORDERED: HUMULIN R 100 UNIT/ML VIAL IV ONE (14:59)
[2017-10-18 15:00] LABS: GLUCOSE,RANDOM 472 mg/dL (74-109)
[2017-10-18] MEDS ORDERED: ONDANSETRON HCL IV 4 MG/2 ML VIAL IVP ONE (16:07)
--- NOTE | 2017-10-20 03:31 | RADIOLOGY REPORT ---
DATE: 10/18/2017. EXAM: PORTABLE AP SEMI RIGHT CHEST. HISTORY: Chest pain. TECHNIQUE: Portable semi right chest. COMPARISON: Chest dated 10/13/2017. FINDINGS: The heart size is normal. The lungs are clear. No pneumothorax. IMPRESSION: NO ACUTE CARDIOPULMONARY PROCESS. JOB NUMBER: [id number] MTDD
== END 2017-10-18 16:21 | disposition short-term general hospital (02) ==
LOC: ER 13:54
DX: I48.0 Paroxysmal atrial fibrillation (principal); E11.65 Type 2 diabetes mellitus with hyperglycemia; I10 Essential (primary) hypertension; Z79.4 Long term (current) use of insulin; Z87.891 Personal history of nicotine dependence; Z79.01 Long term (current) use of anticoagulants
CPT/HCPCS: 99291 ×2; 96372; 96365; 96366; 96375; 99292; 85025; 85610; 80053; 84484; 83880; 71010; 93005; 93010; J2405; J1650

== ENCOUNTER 2017-10-26 10:57 | Emergency (ER) | payer BC ==
[2017-10-26] MEDS ORDERED: AMIODARONE HCL 200 MG TABLET PO ONE (11:42)
[2017-10-26] MEDS ORDERED: METOPROLOL TART 5 MG/5 ML VIAL IV ONE (11:45)
[2017-10-26 11:54] LABS: BASO % 0.5 % (0-6); EOS % 2.8 % (0-6); GRAN % 67.7 % (47-80); HEMATOCRIT 46.4 % (42.0-52.0); HEMOGLOBIN 16.1 gm/dl (14.0-18.0); LYMPH % 19.8 % (16-45); MEAN CELL VOLUME 84.2 fl (81-97); MEAN CORPUSCULAR HEMOGLOBIN 29.2 pg (27-33); MEAN CORPUSCULAR HGB CONC 34.7 g/dl (32-36); MONO % 9.2 % (0-9); PLATELET COUNT 407 K/uL (130-400); RED BLOOD COUNT 5.51 M/uL (4.40-5.70); RED CELL DISTRIBUTION WIDTH 13.4 % (11.5-14.5); WHITE BLOOD COUNT W/O DIFF 8.3 K/uL (4.2-12.2)
[2017-10-26 12:10] LABS: INR 2.6; PROTHROMBIN TIME (PATIENT) 28.4 SECONDS (9.5-12.1)
[2017-10-26 12:26] LABS: BLOOD UREA NITROGEN 9 mg/dL (6-20); CREATININE 0.7 mg/dL (0.7-1.2); EST GLOMERULAR FILTRATION RATE > 60 mL/min
[2017-10-26 12:28] LABS: GLUCOSE,RANDOM 490 mg/dL (74-109)
[2017-10-26] MEDS ORDERED: HUMULIN R 100 UNIT/ML VIAL SQ ONE (12:44)
--- NOTE | 2017-10-26 14:04 | Emergency Department Record ---
History of Present Illness - General Chief Complaint: Arrythmia/Palpitations Stated Complaint: AFIB Time Seen by Provider: 10/26/17 11:29 Source: Patient Mode of Arrival: Ambulatory Limitations: No limitations - History of Present Illness Initial Comments: pt is back in afib. he has had mutiple episodes recently with hospitaizations. he is very upset that he is back into it. he is scheduled for an ablation the end of October. Complaint: Atrial fibrillation, "Heart racing", Palpitations Onset/Timin -: Minutes(s) Context: Other Arrythmia History: Atrial fibrillation - Related Data Home Medications Medication Instructions Recorded Confirmed Last Taken Amiodarone HCl [Pacerone] 200 mg PO BID 10/26/17 10/26/17 10/25/17 Allergies Allergy/AdvReac Type Severity Reaction Status Date / Time Penicillins Allergy Intermediate HIVES Verified 10/15/17 13:37 Tetracyclines Allergy Intermediate PT UNSURE Verified 10/15/17 13:37 OF REACTION clarithromycin [From Biaxin] Allergy HIVES Verified 10/15/17 13:37 Travel Screening - Travel/Exposure Within Last 30 Days Have you traveled within the last 30 days?: No - Travel/Exposure Within Last Year Have you traveled outside the [place] in the last year?: No - Additonal Travel Details Have you been exposed to anyone with a communicable illness?: No - Travel Symptoms Symptom Screening: None Review of Systems Reviewed: No additional complaints except as noted below Constitutional: Reports: As per HPI. Denies: Chills, Fever, Malaise, Night sweats, Weakness, Weight change Eyes: Reports: As per HPI. Denies: Eye discharge, Eye pain, Photophobia, Vision change ENT: Reports: As per HPI. Denies: Congestion, Dental pain, Ear pain, Epistaxis , Hearing loss, Throat pain Respiratory: Reports: As per HPI. Denies: Cough, Dyspnea, Hemoptysis, Stridor, Wheezes Cardiovascular: Reports: As per HPI. Denies: Arrhythmia, Chest pain, Dyspnea on exertion, Edema, Murmurs, Orthopnea, Palpitations, Paroxysmal nocturnal dyspnea, Rheumatic Fever, Syncope Endocrine: Reports: As per HPI. Denies: Fatigue, Heat or cold intolerance, Polydipsia, Polyuria Gastrointestinal: Reports: As per HPI. Denies: Abdominal pain, Constipation, Diarrhea, Hematemesis, Hematochezia, Melena, Nausea, Vomiting Genitourinary: Reports: As per HPI. Denies: Dysuria, Frequency, Hematuria, Incontinence, Retention, Testicular pain, Testicular mass, Urgency Musculoskeletal: Reports: As per HPI. Denies: Arthralgia, Back pain, Gout, Joint swelling, Myalgia, Neck pain Skin: Reports: As per HPI. Denies: Bruising, Change in color, Change in hair/ nails, Lesions, Pruritus, Rash Neurological: Reports: As per HPI. Denies: Abnormal gait, Confusion, Headache, Numbness, Paresthesias, Seizure, Tingling, Tremors, Vertigo, Weakness Psychiatric: Reports: As per HPI. Denies: Anxiety, Auditory hallucinations, Depression, Homicidal thoughts, Suicidal thoughts, Visual hallucinations Hematological/Lymphatic: Reports: As per HPI. Denies: Anemia, Blood Clots, Easy bleeding, Easy bruising, Swollen glands Past Medical History - SOCIAL HISTORY Smoking Status: Former smoker Alcohol Use: None Drug Use: None - RESPIRATORY Hx Respiratory Disorders: No Hx Pulmonary Embolism: Yes (x2 2007, and 2009) - CARDIOVASCULAR Hx Cardio Disorders: Yes Hx Abnormal EKG: Yes Hx Deep Vein Thrombosis: Yes Hx Irregular Heartbeat: Yes Comment:: pulmonary embolism - NEURO Hx Neuro Disorders: No - GI Hx GI Disorders: Yes Hx Reflux: Yes Hx Ulcer: Yes - Hx Genitourinary Disorders: No - ENDOCRINE Hx Endocrine Disorders: Yes Hx Diabetes: Yes (type 2) - MUSCULOSKELETAL Hx Musculoskeletal Disorders: No - PSYCH Hx Psych Problems: No - HEMATOLOGY/ONCOLOGY Hx Hematology/Oncology Disorders: Yes 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 negative: External canal tenderness Nasal Exam: Normal inspection. negative: Discharge, Sinus tenderness Mouth exam: Normal external inspection, Tongue normal Teeth exam: Normal inspection. negative: Dental caries Throat exam: Normal inspection. negative: Tonsillar erythema, Tonsillar exudate - Neck Neck exam: Normal inspection, Full ROM. negative: Tenderness - Respiratory Respiratory exam: Normal lung sounds bilaterally. negative: Respiratory distress - Cardiovascular Cardiovascular Exam: Normal heart sounds, Irregular rhythm, Tachycardia - GI/Abdominal GI/Abdominal exam: Soft, Normal bowel sounds. negative: Tenderness - Rectal Rectal exam: Deferred - exam: Deferred - Extremities Extremities exam: Normal inspection, Full ROM, Normal capillary refill. negative: Tenderness - Back Back exam: Reports: Normal inspection, Full ROM. Denies: Muscle spasm, Rash noted, Tenderness - Neurological Neurological exam: Alert, CN II-XII intact, Normal gait, Oriented X3 - Psychiatric Psychiatric exam: Normal affect, Normal mood - Skin Skin exam: Dry, Intact, Normal color, Warm Course Vital Signs 10/26/17 10/26/17 10/26/17 10:59 11:41 12:00 Temperature 97.5 F L Pulse Rate 136 H Pulse Rate [ 117 H 98 H Pulse Ox Probe] Respiratory 20 16 16 Rate Blood Pressure 158/94 Blood Pressure 140/93 136/93 [Left Arm] Pulse Ox 97 97 98 10/26/17 12:30 Temperature Pulse Rate Pulse Rate [ 116 H Pulse Ox Probe] Respiratory 16 Rate Blood Pressure Blood Pressure 117/87 [Left Arm] Pulse Ox 98 - Reevaluation(s) Reevaluation #1: 10/26/17 14:02 pt states he cant take being in afib anymore and that if we dont do something to fix it he will. when questioned further he would not explain what that something was Reevaluation #2: 10/26/17 16:44 d/w dr lopez Medical Decision Making - Lab Data Result diagrams: 10/26/17 11:15 10/26/17 11:15 Lab Results 10/26/17 10/26/17 10/26/17 Range/Units 11:15 11:15 11:15 WBC 8.3 (4.2-12.2) K/uL RBC 5.51 (4.40-5.70) M/uL Hgb 16.1 (14.0-18.0) gm/dl Hct 46.4 (42.0-52.0) % MCV 84.2 (81-97) fl MCH 29.2 (27-33) pg MCHC 34.7 (32-36) g/dl RDW 13.4 (11.5-14.5) % Plt Count 407 H (130-400) K/uL MPV 10.0 (7.4-10.4) fl Gran % 67.7 (47-80) % Lymphocytes % 19.8 (16-45) % Monocytes % 9.2 H (0-9) % Eosinophils % 2.8 (0-6) % Basophils % 0.5 (0-6) % PT 28.4 H (9.5-12.1) SECONDS INR 2.60 Sodium 130 L (136-145) mmol/L Potassium 3.7 (3.4-4.5) mmol/L Chloride 91 L (98-107) mmol/L Carbon Dioxide 22.0 (22-29) mmol/L Anion Gap 17.0 H (7-16) BUN 9 (6-20) mg/dL Creatinine 0.7 (0.7-1.2) mg/dL Estimated GFR > 60 mL/min Random Glucose 490 H* (74-109) mg/dL Calcium 9.3 (8.6-10.0) mg/dL Troponin T 0.010 (0-0.010) ng/mL Disposition Disposition: Transfer Clinical Impression: Atrial fibrillation with RVR Uncontrolled diabetes mellitus Qualifiers: Diabetes mellitus type: type 2 Diabetes mellitus complication status: with hyperglycemia Diabetes mellitus joint terminal attack controller insulin use: without joint terminal attack controller use Qualified Code(s): E11.65 - Type 2 diabetes mellitus with hyperglycemia Disposition: Acute Care Hospital Transfer Transfer To: [facility] Reason For Transfer: needs strategic analyst Accepting Physician: dr paez Time Discussed w/Accepting Physician: 16:53 Forms: Patient Portal Access Quality - Quality Measures Quality Measures: N/A - Blood Pressure Screening Does Patient Have Any of the Following: No Blood Pressure Classification: Hypertensive Reading Systolic Measurement: 158 Diastolic Measurement: 94 Screening for High Blood Pressure: < First Hypertensive BP, F/U Documented > [ G8950] First Hypertensive Follow-up Interventions: Follow-up with rescreen GT 1 day and LT 4 weeks.
[2017-10-26 14:22] LABS: ACETONE,SERUM NEGATIVE (NEGATIVE)
[2017-10-26 14:34] LABS: URINE APPEARANCE CLEAR; URINE BILIRUBIN NEGATIVE (NEGATIVE); URINE COLOR YELLOW
[2017-10-26 14:35] LABS: URINE BLOOD NEGATIVE (NEGATIVE); URINE KETONE TRACE (NEGATIVE); URINE LEUKOCYTE ESTERASE NEGATIVE (NEGATIVE); URINE NITRITE NEGATIVE (NEGATIVE); URINE PROTEIN NEGATIVE (NEGATIVE); URINE UROBILINOGEN 0.2 E.U./dL (0.20 - 1.00)
[2017-10-26] MEDS ORDERED: 0.9 % SODIUM CHLORIDE 1,000 ML BAG IV ONE (16:15)
== END 2017-10-26 17:47 | disposition short-term general hospital (02) ==
LOC: ER 10:57
DX: I48.0 Paroxysmal atrial fibrillation (principal); E11.65 Type 2 diabetes mellitus with hyperglycemia; I10 Essential (primary) hypertension; Z86.711 Personal history of pulmonary embolism; Z79.4 Long term (current) use of insulin; Z87.891 Personal history of nicotine dependence; Z79.01 Long term (current) use of anticoagulants
CPT/HCPCS: 36416; 80048; 81003; 82009; 82800; 82948; 84484; 85025; 85610; 93005; 93010; 96372; 96374; 99284; 99285; J7030

== ENCOUNTER 2018-03-23 20:01 | Observation (INO) | payer BC ==
[2018-03-23] MEDS ORDERED: NITROGLYCERIN 0.4MG SL TABLET #25 BTL SL ONE (20:05)
[2018-03-23] MEDS ORDERED: ASPIRIN 81 MG CHEWABLE TABLET PO ONE (20:05)
--- NOTE | 2018-03-23 20:09 | Emergency Department Record ---
History of Present Illness - General Stated Complaint: CHEST PAINS Time Seen by Provider: 03/23/18 20:05 Source: Patient Mode of Arrival: Ambulatory Limitations: No limitations - History of Present Illness Initial Comments: 57 yo male presents to ED for evaluation of chest pain that began approximately 30 minutes ago while mowing the grass. Patient denies previous heart attacks or stent placement, but does report a history of atrial fibrillation. Patient denies fevers, chills, or cough symptoms, denies history of DVT/PE. MD Complaint: Chest pain Onset/Timin -: Minutes(s) Onset: During exertion Pain Location: Substernal Pain Radiation: None Severity: Moderate Quality: Aching Consistency: Constant Improves With: Rest Treatments Prior to Arrival: None - Related Data Home Medications Medication Instructions Recorded Confirmed Last Taken Insulin Detemir [Levemir] 50 unit SQ DAILY 03/23/18 03/23/18 03/23/18 Allergies Allergy/AdvReac Type Severity Reaction Status Date / Time Penicillins Allergy Intermediate HIVES Verified 10/15/17 13:37 Tetracyclines Allergy Intermediate PT UNSURE Verified 10/15/17 13:37 OF REACTION clarithromycin [From Biaxin] Allergy HIVES Verified 10/15/17 13:37 Review of Systems Constitutional: Denies: Chills, Fever, Malaise, Night sweats Eyes: Denies: Eye discharge, Eye pain ENT: Denies: Congestion, Ear pain, Epistaxis Respiratory: Denies: Cough, Dyspnea Cardiovascular: Reports: Chest pain. Denies: Dyspnea on exertion Endocrine: Denies: Fatigue, Heat or cold intolerance Gastrointestinal: Denies: Abdominal pain, Nausea, Vomiting Genitourinary: Denies: Incontinence, Retention Musculoskeletal: Denies: Arthralgia, Back pain, Gout, Joint swelling Skin: Denies: Bruising, Change in color Neurological: Denies: Abnormal gait, Confusion, Headache, Seizure Psychiatric: Denies: Anxiety Hematological/Lymphatic: Denies: Anemia, Blood Clots Past Medical History - SOCIAL HISTORY Smoking Status: Former smoker Drug Use: None - RESPIRATORY Hx Respiratory Disorders: No Hx Pulmonary Embolism: Yes (x2 2007, and 2009) - CARDIOVASCULAR Hx Cardio Disorders: Yes Hx Abnormal EKG: Yes Hx Deep Vein Thrombosis: Yes Hx Irregular Heartbeat: Yes Comment:: pulmonary embolism - NEURO Hx Neuro Disorders: No - GI Hx GI Disorders: Yes Hx Reflux: Yes Hx Ulcer: Yes - Hx Genitourinary Disorders: No - ENDOCRINE Hx Endocrine Disorders: Yes Hx Diabetes: Yes (type 2) - MUSCULOSKELETAL Hx Musculoskeletal Disorders: No - PSYCH Hx Psych Problems: No - HEMATOLOGY/ONCOLOGY Hx Hematology/Oncology Disorders: Yes Hx Cancer: Yes (basal cell in pentecostalism) Hx Chemotherapy: No Hx Radiation Therapy: No Family Medical History Hx Diabetes: Father, Mother Hx Heart Disease: Mother Physical Exam - General General Appearance: Alert, Oriented x3, Cooperative, Mild distress, Anxious Limitations: No limitations - Head Head exam: Atraumatic, Normocephalic, Normal inspection Head exam detail: negative: Abrasion, Contusion, English's sign, General tenderness, Hematoma, Laceration - Eye Eye exam: Normal appearance. negative: Conjunctival injection, Periorbital swelling, Periorbital tenderness, Scleral icterus - ENT Ear exam: negative: Auricular hematoma, Auricular trauma Nasal Exam: negative: Active bleeding, Discharge, Dried blood, Foreign body Mouth exam: negative: Drooling, Laceration, Tongue elevation - Neck Neck exam: Normal inspection. negative: Meningismus, Tenderness - Respiratory Respiratory exam: Normal lung sounds bilaterally. negative: Rales, Respiratory distress, Rhonchi, Stridor - Cardiovascular Cardiovascular Exam: Regular rate, Normal rhythm, Normal heart sounds - GI/Abdominal GI/Abdominal exam: Soft. negative: Rebound, Rigid, Tenderness - Rectal Rectal exam: Deferred - exam: Deferred - Extremities Extremities exam: Other (Chronic venous changes to the lower extremities bilaterally). negative: Calf tenderness, Pedal edema, Tenderness - Back Back exam: Denies: CVA tenderness (R), CVA tenderness (L) - Neurological Neurological exam: Alert, Normal gait, Oriented X3 - Psychiatric Psychiatric exam: Normal affect, Normal mood - Skin Skin exam: Normal color. negative: Abrasion Type of lesion: negative: abrasion Course - Reevaluation(s) Reevaluation #1: 03/23/18 20:09 Sinus tachycardia 104 LVH, LAD T wave inversion AVL only. Previous 10/26/17, atrial fibrillation, otherwise unchanged from today. 03/23/18 20:37 Laboratory studies were reviewed, glucose 464, WBC 14.1. Troponin appears negative. Patient does report improvement in his chest pain symptoms following Nitro. Reevaluation #2: 03/23/18 20:59 Case was discussed with Dr. Loving, will accept admission at this time for further cardiac evaluation. Medical Decision Making - Lab Data Result diagrams: 03/23/18 20:08 03/23/18 20:08 Disposition Disposition: Admit Clinical Impression: Hyperglycemia Chest pain Qualifiers: Chest pain type: unspecified Qualified Code(s): R07.9 - Chest pain, unspecified Disposition: Still a Patient at [facility] Decision to Admit: Admit from ER Decision to Admit Date: 03/23/18 Decision to Admit Time: 20:58 Condition: (2) Stable Time of Disposition: 20:58 Quality - Quality Measures Quality Measures: N/A - Blood Pressure Screening Does Patient Have Any of the Following: Active Dx of HTN Blood Pressure Classification: Hypertensive Reading Systolic Measurement: 112 Diastolic Measurement: 91 Screening for High Blood Pressure: Patient Exclusion, Hx of HTN [G9744]
[2018-03-23 20:12] LABS: BASO % 0.4 % (0-6); EOS % 1.8 % (0-6); GRAN % 63.7 % (47-80); HEMATOCRIT 48.7 % (42.0-52.0); HEMOGLOBIN 17.1 gm/dl (14.0-18.0); LYMPH % 25.7 % (16-45); MEAN CELL VOLUME 82.8 fl (81-97); MEAN CORPUSCULAR HGB CONC 35.1 g/dl (32-36); MEAN PLATELET VOLUME 9.9 fl (7.4-10.4); MONO % 8.4 % (0-9); PLATELET COUNT 459 K/uL (130-400); RED BLOOD COUNT 5.88 M/uL (4.40-5.70); RED CELL DISTRIBUTION WIDTH 14.2 % (11.5-14.5); WHITE BLOOD COUNT W/O DIFF 14.1 K/uL (4.2-12.2)
[2018-03-23 20:21] LABS: BLOOD UREA NITROGEN 16 mg/dL (6-20)
[2018-03-23 20:22] LABS: CREATININE 0.7 mg/dL (0.7-1.2); EST GLOMERULAR FILTRATION RATE > 60 mL/min
[2018-03-23] MEDS ORDERED: 0.9 % SODIUM CHLORIDE 1000ML 1,000 ML IV PRN (20:23)
[2018-03-23 20:27] LABS: ALB/GLOB RATIO 1.6 (1.1-1.8); ALBUMIN 4.3 g/dL (4.0-5.0); ALKALINE PHOSPHATASE 198 U/L (40-129); ALT/SGPT 12 U/L (<41); AST/SGOT 12 U/L (10.0-50.0)
[2018-03-23 20:40] LABS: GLUCOSE,RANDOM 464 mg/dL (74-109)
[2018-03-23 21:08] LABS: INR 1.5; PROTHROMBIN TIME (PATIENT) 16.7 SECONDS (9.5-12.1)
[2018-03-23] MEDS ORDERED: NITROGLYCERIN 0.4MG SL TABLET #25 BTL SL PRN (21:56)
[2018-03-23] MEDS ORDERED: LEVEMIR FLEXTOUCH 100 UNIT/ML INSULIN PEN SQ SCH (22:30)
[2018-03-23] MEDS ORDERED: WARFARIN 5 MG TAB PO SCH (22:30)
[2018-03-23] MEDS ORDERED: AMIODARONE HCL 200 MG TABLET PO SCH (22:30)
[2018-03-23] MEDS: METOPROLOL TART 25 MG TABLET PO SCH (23:12)
[2018-03-24] MEDS ORDERED: AL HYDROX/MAG HYDROX 30ML UD PO PRN (05:55)
[2018-03-24] MEDS ORDERED: ASPIRIN 325 MG TABLET PO SCH (10:00)
[2018-03-24] MEDS ORDERED: AMIODARONE HCL 200 MG TABLET PO SCH (10:00)
[2018-03-24] MEDS: METOPROLOL TART 25 MG TABLET PO SCH (10:18)
--- NOTE | 2018-03-24 12:31 | History and Physical Report ---
DATE: 03/24/2018 at 9:43 a.m. CHIEF COMPLAINT: Chest pain. HISTORY OF PRESENT ILLNESS: This 57-year-old male presented with left-sided chest pain which started about 6 p.m. while cutting the grass, pushing the lawnmower 30 minutes prior to coming into the ER at 8 p.m. He states that it was kind of in the epigastric area, kind of sharp in nature and also a little bit of indigestion. He was given one nitroglycerin when he hit the ER door but he said the pain had actually gone away prior to the nitroglycerin given to him. He said the pain went away about 3 or 4 minutes after getting to the hospital ER and he has had no pain since that time. He was evaluated by Dr. Dsouza and admitted to the hospital for serial cardiac enzymes and cardiology consult. 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 He has a history of atrial fibrillation and diabetes mellitus and he is on amiodarone, metoprolol, and insulin. He is not very compliant with using his medications and he takes them kind of the way he wants to take them. He said he was taking his amiodarone 100 mg b.i.d. instead of 200 mg once a day. He has not taken his metoprolol tartrate and his insulin is kind of hit and miss. PAST MEDICAL HISTORY: Atrial fibrillation intermittent, diabetes mellitus on insulin. He has had some skin cancer in his face. He also had a femoral artery surgery repair when he was a child about 16 years of age from a laceration. He has had pulmonary embolisms in 2007 and 2009 on Coumadin for life. He also had DVT of his legs, GERD, type 2 diabetes but on insulin. PAST SURGICAL HISTORY: Right leg vascular surgery for a femoral artery laceration, basal cell cancer removal on his face, T&A as a child. MEDICATIONS: 1. Amiodarone 100 mg b.i.d. He is supposed to be taking 200 mg daily. 2. Levemir 50 units daily. He takes it in the morning. 3. Coumadin. He was taking 2.5 mg a day because he stopped for IV antibiotics and antibiotic therapy approximately 3 months ago when he had facial cellulitis at [facility] and he was on 5 mg prior to that, so we will put him back to 5 mg. His INR is 1.5. 4. Metoprolol tartrate he is not taking but he is supposed to be taking 25 mg twice a day. 5. Aspirin 325 a day. ALLERGIES: PENICILLIN, TETRACYCLINE, CLARITHROMYCIN. FAMILY/PSYCHOSOCIAL HISTORY: Former smoker. No alcohol or drug use. Mother and father have diabetes and mother has heart disease. REVIEW OF SYSTEMS: HEENT: No upper respiratory infection symptoms, cough, cold, or congestion. Cardiovascular: See Chief Complaint. He has history of intermittent atrial fibrillation. No previous MIs. He tried ablation therapy but that failed, going through the groin. Respiratory: No cough, cold, or congestion. He stopped smoking. Gastrointestinal: He does have GERD and he had some Mylanta this morning which helped his indigestion. Otherwise, no constipation or diarrhea. No melena or abdominal pain. Genitourinary: No dysuria, hematuria, frequency, or burning on urination. Musculoskeletal: Some joint arthritis. No other significant joint musculoskeletal problems. Neurological: No CVA, paralysis, or paresthesias. Endocrine: He has diabetes type 2. No hypothyroidism. Integument: He has some basal cell skin cancer. No other abnormalities with his skin, dryness, heat intolerance, or weight changes. PHYSICAL EXAMINATION: VITALS: Height 5 feet 10 inches, weight 260 pounds. Temperature 98.1, pulse 78, blood pressure 142/97, respiratory rate 18, pulse ox 98% on room air. HEENT: Pupils are equal, round, and reactive to light and accommodation. Extraocular muscles are intact. Throat is clear. Nose is clear. Tympanic membranes are [place]. There is a lesion on the right side of his nose that was removed. There is a scab there and it is healing. NECK: Supple. No jugular venous distention. No hepatojugular reflux. No carotid bruits. Thyroid is smooth. CARDIOVASCULAR: Regular rate and rhythm without murmurs, clicks, rubs, or gallops. RESPIRATORY: Clear to auscultation and percussion. ABDOMEN: Soft, nontender. No hepatosplenomegaly, no masses, no tenderness. Bowel sounds are active. No bruits. EXTREMITIES: No pitting edema. He has hyperpigmentation of his legs from chronic venous insufficiency. He has no significant edema. Full range of motion. Peripheral pulses are good. BREASTS: Normal male breasts. GENITALIA: Normal male genitalia. NEUROLOGIC: Cranial nerves II-XII intact. No gross defects. Sensation normal, strength normal. Deep tendon reflexes equal bilaterally with Babinski negative. MENTAL STATUS: Alert and oriented x3. IMPRESSION: 1. Chest pain. 2. Gastroesophageal reflux disease. 3. History of intermittent atrial fibrillation, cotton grower Dr. Blake. 4. History of pulmonary embolisms and deep venous thromboses in [address] Keenan is managing the Coumadin. PLAN: Serial cardiac enzymes, which were negative. Serial EKGs. Will have a repeat EKG. Dr. Blake will be seeing the patient this afternoon to decide if any more testing is necessary. At this point, chest pain asymptomatic and he is feeling better. We have bumped his Coumadin up to 5 mg since he was at 1.5 at 2.5. We will make recommendations on discharge. STEVE
[2018-03-24] MEDS ORDERED: LEVEMIR FLEXTOUCH 100 UNIT/ML INSULIN PEN SQ SCH (13:00)
--- NOTE | 2018-03-24 17:43 | Discharge Note ---
VTE H&P Assessment - Risk for VTE Risk for VTE: Yes Risk Level: Moderate Risk Assessment Date: 03/24/18 Risk Assessment Time: 10:00 VTE Orders Placed or Will Be Placed: Yes Discharge Medications - Discharge Medications Prescriptions: Metoprolol Succinate [Toprol Xl] 12.5 mg PO DAILY #30 tab.er.24h Home Medications: Ambulatory Orders Warfarin Sodium 5 mg PO QHS 08/27/15 [Last Taken 10/25/17] Aspirin 325 mg PO DAILY 10/18/17 [Last Taken 10/25/17] Amiodarone HCl [Pacerone] 200 mg PO DAILY 10/26/17 [Last Taken 10/25/17] Insulin Detemir [Levemir] 50 unit SQ DAILY 03/23/18 [Last Taken 03/23/18] Magnesium Hydroxide/Al Hydrox [Maalox] 30 ml PO Q4H PRN oral.susp 03/24/18 [ Last Taken Unknown] Metoprolol Succinate [Toprol Xl] 12.5 mg PO DAILY #30 tab.er.24h 03/24/18 [Last Taken Unknown] Discharge Note - Date Date of Discharge Note: 03/24/18 Disposition: Home, Self-Care Condition: (2) Stable Instructions: A-fib (Atrial Fibrillation) (GEN) Additional Instructions: follow up with Dr. Mckeon in 1 week to have coumadin checked and followed by Dr. Mckeon follow up with Dr. Blake as scheduled stop metolprolol tartrate and start metoprolol succinate Referrals: IVETT MCKEON [Primary Care Provider] - Activity at Discharge: Increase Activity as Tolerated
--- NOTE | 2018-03-24 20:38 | Medical Records Consult ---
DATE OF CONSULTATION: 03/24/2018 HISTORY: Mr. Andrews is 57 years old with history of DVT/pulmonary embolism, essential hypertension, venous insufficiency, morbid obesity, and paroxysmal atrial fibrillation. Mr. Andrews presented to the [facility] with chest pain, which occurs after drinking cold substances. Mr. Andrews had cardiac enzymes, which are negative. His ECG demonstrated sinus rhythm, normal axis and intervals. He did have episodes of atrial fibrillation. Mr. Andrews underwent attempt at A-Fib ablation in October 2017, which was aborted due to inability to cross the interatrial septum. He was asked to follow-up for reattempt at ablation in the future, which he had not. Mr. Andrews has longstanding history of noncompliance with medications. He had been taking Amiodarone 200 mg b.i.d. In addition, he had not been taking Metoprolol tartrate as prescribed. Mr. Andrews does have symptomatic atrial fibrillation. He recently was at [facility] being treated for fascial cellulitis. His blood pressure is currently stable. He is on Warfarin for long- term anticoagulation. PAST MEDICAL HISTORY INCLUDES: DVT. Primary hypertension. Paroxysmal atrial fibrillation. Facial cellulitis. Tonsillectomy. Adenoidectomy. MEDICATIONS INCLUDE: Warfarin as directed Amiodarone 200 mg daily Metoprolol tartrate 25 mg b.i.d. Lisinopril 10 mg daily ALLERGIES: PENICILLIN. BIAXIN. TETRACYCLINES. SOCIAL HISTORY: He is morbidly obese. He denies any tobacco or alcohol use. He quit smoking in 1979. FAMILY HISTORY: No members with coronary artery disease. IMPRESSION/PLAN: 1. MORBID OBESITY. 2. PRIMARY HYPERTENSION. 3. DIABETES TYPE II 4. HYPERLIPIDEMIA. 5. PAROXYSMAL ATRIAL FIBRILLATION. 6. DVT/PE HISTORY. Mr. Andrews has symptomatic paroxysmal atrial fibrillation. He has had stress testing previously with no evidence for coronary artery disease. At this time, he should remain on Warfarin for lifelong anticoagulation due to elevated CHADS- VASc score. In addition, he should be on Amiodarone 200 mg daily. Due to his history of noncompliance, we will switch to Metoprolol Succinate 12.5 mg every h.s. Mr. Andrews will be asked to follow-up with Dr. Paul for reattempt at atrial fibrillation ablation. Mr. Andrews will otherwise follow-up with me in 3 to 4 weeks and can be discharged safely today from [facility]. JOB NUMBER: [id number] MTDD
--- NOTE | 2018-03-25 10:20 | RADIOLOGY REPORT ---
EXAM: CHEST, TWO VIEWS HISTORY: DIFFICULTY IN BREATHING. TECHNIQUE: Two views of the chest were performed. Comparison: 10/18/17. FINDINGS: The heart size is normal. No pulmonary vascular congestion. No infiltrate or pleural effusion. The osseous structures are normal. IMPRESSION: NEGATIVE CHEST EXAMINATION. JOB NUMBER: [id number] MTDD
== END 2018-03-24 18:51 | disposition home or self-care (01) ==
LOC: ER 20:01 → MEDSURG 21:45
PROVIDERS: ADMIT Emergency Medicine; ATTEND Emergency Medicine
DX: R07.9 Chest pain, unspecified (principal); R73.9 Hyperglycemia, unspecified; I48.0 Paroxysmal atrial fibrillation; Z79.01 Long term (current) use of anticoagulants; K21.9 Gastro-esophageal reflux disease without esophagitis; E11.9 Type 2 diabetes mellitus without complications; Z79.4 Long term (current) use of insulin; Z85.828 Personal history of other malignant neoplasm of skin; Z86.711 Personal history of pulmonary embolism; Z86.718 Personal history of other venous thrombosis and embolism; Z87.891 Personal history of nicotine dependence
CPT/HCPCS: 99285 ×2; 85025; 85610; 80053; 36416; 82948; 84484 ×2; 71046; 93005 ×2; 93010; G0378 ×2; 99220

== ENCOUNTER 2019-05-01 14:42 | Emergency (ER) | payer BC ==
[2019-05-01] MEDS ORDERED: PROPARACAINE HCL OPTH 15ML BTL OPTH ONE ×2 (15:05→15:06)
[2019-05-01] MEDS ORDERED: GENTAMICIN SULFATE 0.3% OPTH 5 ML BTL OPTH ONE (15:18)
--- NOTE | 2019-05-01 15:21 | Emergency Department Record ---
History of Present Illness - General Chief complaint: Eye Problem Stated complaint: LT EYE IRRATATION/ABDOMINAL PAIN Time Seen by Provider: 05/01/19 15:17 Source: Patient Mode of Arrival: Ambulatory Limitations: No limitations - History of Present Illness Initial comments: Pt to ED with issues with irritation to the left eye for 5-7 days. States he believes he got grass kaitlin his eye while cleaning the mower last week. No change in vision with glasses. No discharge or crusting to the eye. Pt denies pain but there is itching to the eye. Pt is very difficult to keep on point and easily is distracted from line of questioning. Wants to discuss his A fib meds and the issues he has had with his GB over the past 5 years. With redirection we have attempted to gain a full understanding of his eye issues today. Onset/Timin -: Week(s) Onset Description: Gradual Location: Left eye Place: Other Associated Symptoms: Nausea/vomiting Treatments Prior to Arrival: None - Related Data Hx Tetanus Toxoid Vaccination: Yes Year of Tetanus Vaccination: unknown Previous Rx's Medication Instructions Recorded Magnesium Hydroxide/Al Hydrox 30 ml PO Q4H PRN oral.susp 03/24/18 [Maalox] Metoprolol Succinate [Toprol Xl] 12.5 mg PO DAILY #30 tab.er.24h 03/24/18 Allergies Allergy/AdvReac Type Severity Reaction Status Date / Time Penicillins Allergy Intermediate HIVES Verified 10/15/17 13:37 Tetracyclines Allergy Intermediate PT UNSURE Verified 10/15/17 13:37 OF REACTION clarithromycin [From Biaxin] Allergy HIVES Verified 10/15/17 13:37 Travel Screening - Travel/Exposure Within Last 30 Days Have you traveled within the last 30 days?: No - Travel/Exposure Within Last Year Have you traveled outside the [place] in the last year?: No - Additonal Travel Details Have you been exposed to anyone with a communicable illness?: No Review of Systems Constitutional: Denies: Chills, Fever Eyes: Reports: Photophobia, Other (left eye redness. ). Denies: Eye discharge, Vision change ENT: Denies: Congestion Respiratory: Denies: Cough, Dyspnea Cardiovascular: Denies: Chest pain, Dyspnea on exertion, Syncope Endocrine: Denies: Fatigue Gastrointestinal: Denies: Diarrhea, Nausea, Vomiting Genitourinary: Denies: Dysuria Musculoskeletal: Denies: Arthralgia Skin: Denies: Bruising Psychiatric: Denies: Suicidal thoughts Hematological/Lymphatic: Denies: Anemia Past Medical History - SOCIAL HISTORY Smoking Status: Former smoker Alcohol Use: None Drug Use: None - RESPIRATORY Hx Respiratory Disorders: No Hx Pulmonary Embolism: Yes (x2 2007, and 2009) - CARDIOVASCULAR Hx Cardio Disorders: Yes Hx Abnormal EKG: Yes Hx Deep Vein Thrombosis: Yes Hx Irregular Heartbeat: Yes Comment:: pulmonary embolism - NEURO Hx Neuro Disorders: No - GI Hx GI Disorders: Yes Hx Reflux: Yes Hx Ulcer: Yes - Hx Genitourinary Disorders: No - ENDOCRINE Hx Endocrine Disorders: Yes Hx Diabetes: Yes (type 2) - MUSCULOSKELETAL Hx Musculoskeletal Disorders: No - PSYCH Hx Psych Problems: No - HEMATOLOGY/ONCOLOGY Hx Hematology/Oncology Disorders: Yes Hx Cancer: Yes (basal cell in catholic) Hx Chemotherapy: No Hx Radiation Therapy: No Family Medical History Any Significant Family History?: No Hx Diabetes: Father, Mother Hx Heart Disease: Mother Physical Exam - General General Appearance: Alert, Oriented x3, Cooperative, No acute distress - Head Head exam: Atraumatic - Eye Eye exam: Normal appearance, PERRL, Conjunctival injection (OS with injection but no discharge, pupils equil and reactive at 3mm. Stained without abrasion - see procedure. No lid edema or fb on eversion of lids upeer and lower left. Anterior chamber clear. ) - ENT ENT exam: Mucous membranes moist, Normal external ear exam, Normal orophraynx - Neck Neck exam: Normal inspection, Full ROM. negative: Tenderness - Respiratory Respiratory exam: Normal lung sounds bilaterally. negative: Respiratory distress - Cardiovascular Cardiovascular Exam: Normal rhythm, Irregular rhythm (HR mid 80s and irreg with hx A fib) - GI/Abdominal GI/Abdominal exam: Soft, Normal bowel sounds. negative: Tenderness - Extremities Extremities exam: Normal inspection - Back Back exam: Reports: Normal inspection - Psychiatric Psychiatric exam: Anxious (Pt with rapid speach and easily distracted. ) - Skin Skin exam: Normal color. negative: Rash (Lesion to the right nose and scalp hayley to the pt picking at the areas. He states these are not new. ) Course Vital Signs 05/01/19 15:00 Temperature 97.6 F Pulse Rate [ 86 Left] Respiratory 20 Rate Blood Pressure 118/101 [Right Arm] Pulse Ox 98 - Reevaluation(s) Reevaluation #1: 05/01/19 16:48 seen and examined. Left Eye stained without abrasion or hyphema on exam. No FB to lids. Given Gent eye drops with instructions in the ED. Had long talk about taking all meds a prescribed. Pt states he take Coumadin "every now and then" and that he "adjusts the dose" because he "doesn't think he needs that much". Also changes his a fib meds from day to day, "He wants me to take 80 mg but that is too much so I take 40mg". Pt told this is dangerous and that he needs to discuss with his physician. Voiced understanding of this risky behavior. Reevaluation #2: 05/01/19 16:51 PROCEDURE: left eye examined and visual accuity with glasses pt able to read name badge at 12 inches without difficulty. Both left and right eye tested independantly. tetracaone drops followed by fluri strips. No uptake noted with black light exam. Irrigated with saline. Disposition Disposition: Discharge Clinical Impression: Conjunctivitis Qualifiers: Conjunctivitis type: acute Acute conjunctivitis type: unspecified Laterality: left Qualified Code(s): H10.32 - Unspecified acute conjunctivitis, left eye Disposition: Home, Self-Care Condition: (1) Good Instructions: Conjunctivitis (ED) Additional Instructions: Gentamicin eye drops 2 drops to the left eye 4 times a day for 5 days. Family doctor recheck in 5 days Return to the ED sooner if worse. Take ALL MEDICATIONS INSTRUCTED/PRESCRIBED. Forms: Patient Portal Access Time of Disposition: 15:21 Quality - Quality Measures Quality Measures: N/A - Blood Pressure Screening Does Patient Have Any of the Following: No Blood Pressure Classification: Pre-Hypertensive BP Reading Systolic Measurement: 110 Diastolic Measurement: 82 Screening for High Blood Pressure: Patient Exclusion, Hx of HTN [G9744]
== END 2019-05-01 15:29 | disposition home or self-care (01) ==
LOC: ER 14:42
DX: H10.32 Unspecified acute conjunctivitis, left eye (principal); I10 Essential (primary) hypertension; I48.91 Unspecified atrial fibrillation; Z79.01 Long term (current) use of anticoagulants; E11.9 Type 2 diabetes mellitus without complications; Z79.4 Long term (current) use of insulin; Z87.891 Personal history of nicotine dependence
CPT/HCPCS: 99283

== ENCOUNTER 2019-10-16 12:30 | Emergency (ER) | payer BC ==
[2019-10-16] MEDS ORDERED: NITROGLYCERIN 0.4MG SL TABLET #25 BTL SL PRN (13:12)
[2019-10-16 13:17] LABS: ABSOLUTE NEUTROPHIL COUNT 5.16; BASO % 0.6 % (0-6); EOS % 2.6 % (0-6); GRAN % 63.7 % (47-80); HEMATOCRIT 46.4 % (42.0-52.0); LYMPH % 23.6 % (16-45); MEAN CELL VOLUME 81.4 fl (81-97); MEAN CORPUSCULAR HEMOGLOBIN 28.1 pg (27-33); MEAN CORPUSCULAR HGB CONC 34.5 g/dl (32-36); MEAN PLATELET VOLUME 9.1 fl (7.4-10.4); MONO % 9.5 % (0-9); PLATELET COUNT 452 K/uL (130-400); RED CELL DISTRIBUTION WIDTH 13.6 % (11.5-14.5); WHITE BLOOD COUNT W/O DIFF 8.1 K/uL (4.2-12.2)
[2019-10-16 13:23] LABS: BLOOD UREA NITROGEN 15 mg/dL (8-23); CREATININE 0.6 mg/dL (0.7-1.2); EST GLOMERULAR FILTRATION RATE > 60 mL/min
[2019-10-16 13:24] LABS: TOTAL PROTEIN 6.9 g/dL (6.6-8.7)
[2019-10-16 13:26] LABS: GLUCOSE,RANDOM 392 mg/dL (74-109)
[2019-10-16 13:29] LABS: ALB/GLOB RATIO 1.4 (1.1-1.8); ALKALINE PHOSPHATASE 236 U/L (40-129); ALT/SGPT 13 U/L (<41); AST/SGOT 18 U/L (10.0-50.0); CREATINE PHOSPHOKINASE 84 U/L (39-308)
[2019-10-16 13:31] LABS: CKMB 2.9 ng/mL (<6.73)
[2019-10-16 13:33] LABS: INR 1.1
--- NOTE | 2019-10-16 14:35 | RADIOLOGY REPORT ---
EXAMINATION: Two View Chest Radiographs EXAM DATE: 10/16/2019 2:14 PM TECHNIQUE: Frontal and lateral views INDICATION: cp COMPARISON: Multiple back to 02/08/2017 ENCOUNTER: Not applicable FINDINGS: The heart, mediastinum, and pulmonary vasculature are normal. No lung consolidation or pleural effu sions are present. IMPRESSION: No acute radiographic findings. Dictated by: Nikki Hernandez MD on 10/16/2019 2:32 PM. .
[2019-10-16 14:40] LABS: URINE APPEARANCE CLEAR; URINE BILIRUBIN NEGATIVE (NEGATIVE); URINE BLOOD NEGATIVE (NEGATIVE); URINE COLOR YELLOW; URINE KETONE NEGATIVE (NEGATIVE); URINE LEUKOCYTE ESTERASE NEGATIVE (NEGATIVE); URINE NITRITE NEGATIVE (NEGATIVE); URINE PROTEIN NEGATIVE (NEGATIVE); URINE UROBILINOGEN 0.2 E.U./dL (0.20 - 1.00)
[2019-10-16 14:41] LABS: URINE GLUCOSE (UA) >=1000 mg/dL (NEGATIVE)
--- NOTE | 2019-10-16 17:13 | Emergency Department Record ---
History of Present Illness - General Chief Complaint: Chest Pain Stated Complaint: CHEST PAIN Time Seen by Provider: 10/16/19 12:42 Source: Patient Mode of Arrival: Ambulatory Limitations: No limitations - History of Present Illness Initial Comments: pt has had pain in his back for 2 weekspt gerardo feels hes in afib again Onset/Timin -: Week(s) Pain Location: Substernal Pain Radiation: Back Severity: Moderate Severity scale (1-10): 6 Quality: Aching, Dull Consistency: Constant Improves With: Remaining still, Rest Worsens With: Exertion, Movement Other Symptoms: Palpitations - Related Data Home Medications Medication Instructions Recorded Confirmed Last Taken Sotalol HCl [Betapace] 40 mg PO BID 10/16/19 10/16/19 10/16/19 Allergies Allergy/AdvReac Type Severity Reaction Status Date / Time Penicillins Allergy Intermediate HIVES Verified 10/16/19 12:35 Tetracyclines Allergy Intermediate PT UNSURE Verified 10/16/19 12:35 OF REACTION clarithromycin [From Biaxin] Allergy HIVES Verified 10/16/19 12:35 Travel Screening - Travel/Exposure Within Last 30 Days Have you traveled within the last 30 days?: No - Travel/Exposure Within Last Year Have you traveled outside the [place] in the last year?: No - Additonal Travel Details Have you been exposed to anyone with a communicable illness?: No - Travel Symptoms Symptom Screening: None Review of Systems Reviewed: No additional complaints except as noted below Constitutional: Reports: As per HPI. Denies: Chills, Fever, Malaise, Night sweats, Weakness, Weight change Eyes: Reports: As per HPI. Denies: Eye discharge, Eye pain, Photophobia, Vision change ENT: Reports: As per HPI. Denies: Congestion, Dental pain, Ear pain, Epistaxis, Hearing loss, Throat pain Respiratory: Reports: As per HPI. Denies: Cough, Dyspnea, Hemoptysis, Stridor, Wheezes Cardiovascular: Reports: As per HPI, Palpitations. Denies: Arrhythmia, Chest pain, Dyspnea on exertion, Edema, Murmurs, Orthopnea, Paroxysmal nocturnal dyspnea, Rheumatic Fever, Syncope Endocrine: Reports: As per HPI. Denies: Fatigue, Heat or cold intolerance, Polydipsia, Polyuria Gastrointestinal: Reports: As per HPI. Denies: Abdominal pain, Constipation, Diarrhea, Hematemesis, Hematochezia, Melena, Nausea, Vomiting Genitourinary: Reports: As per HPI. Denies: Dysuria, Frequency, Hematuria, Incontinence, Retention, Testicular pain, Testicular mass, Urgency Musculoskeletal: Reports: As per HPI, Back pain. Denies: Arthralgia, Gout, Joint swelling, Myalgia, Neck pain Skin: Reports: As per HPI. Denies: Bruising, Change in color, Change in hair/nails, Lesions, Pruritus, Rash Neurological: Reports: As per HPI. Denies: Abnormal gait, Confusion, Headache, Numbness, Paresthesias, Seizure, Tingling, Tremors, Vertigo, Weakness Psychiatric: Reports: As per HPI. Denies: Anxiety, Auditory hallucinations, Depression, Homicidal thoughts, Suicidal thoughts, Visual hallucinations Hematological/Lymphatic: Reports: As per HPI. Denies: Anemia, Blood Clots, Easy bleeding, Easy bruising, Swollen glands Past Medical History - SOCIAL HISTORY Smoking Status: Former smoker Alcohol Use: None Drug Use: None - RESPIRATORY Hx Respiratory Disorders: Yes Hx Pulmonary Embolism: Yes (x2 2007, and 2009) - CARDIOVASCULAR Hx Cardio Disorders: Yes Hx Abnormal EKG: Yes Hx Deep Vein Thrombosis: Yes Hx Irregular Heartbeat: Yes Comment:: pulmonary embolism - NEURO Hx Neuro Disorders: No - GI Hx GI Disorders: Yes Hx Reflux: Yes Hx Ulcer: Yes - Hx Genitourinary Disorders: No - ENDOCRINE Hx Endocrine Disorders: Yes Hx Diabetes: Yes (type 2) - MUSCULOSKELETAL Hx Musculoskeletal Disorders: No - PSYCH Hx Psych Problems: No - HEMATOLOGY/ONCOLOGY Hx Hematology/Oncology Disorders: Yes Hx Cancer: Yes (basal cell in mu-ism) Hx Chemotherapy: No Hx Radiation Therapy: No Family Medical History Any Significant Family History?: Yes Hx Diabetes: Father, Mother Hx Heart Disease: Mother Physical Exam - General General Appearance: Alert, Oriented x3, Cooperative, Mild distress - Head Head exam: Normal inspection - Eye Eye exam: Normal appearance, PERRL, EOMI Pupils: Normal accommodation - ENT ENT exam: Normal exam, Mucous membranes moist, Normal external ear exam, Normal orophraynx Ear exam: Normal external inspection. negative: External canal tenderness Nasal Exam: Normal inspection. negative: Discharge, Sinus tenderness Mouth exam: Normal external inspection, Tongue normal Teeth exam: Normal inspection. negative: Dental caries Throat exam: Normal inspection. negative: Tonsillar erythema, Tonsillar exudate - Neck Neck exam: Normal inspection, Full ROM. negative: Tenderness - Respiratory Respiratory exam: Normal lung sounds bilaterally. negative: Respiratory distress - Cardiovascular Cardiovascular Exam: Regular rate, Normal rhythm, Normal heart sounds - GI/Abdominal GI/Abdominal exam: Soft, Normal bowel sounds. negative: Tenderness - Rectal Rectal exam: Deferred - exam: Deferred - Extremities Extremities exam: Normal inspection, Full ROM, Normal capillary refill. negati ve: Tenderness - Back Back exam: Reports: Normal inspection, Full ROM, Muscle spasm. Denies: Rash noted, Tenderness - Neurological Neurological exam: Alert, CN II-XII intact, Normal gait, Oriented X3 - Psychiatric Psychiatric exam: Normal affect, Normal mood - Skin Skin exam: Dry, Intact, Normal color, Warm Course Vital Signs 10/16/19 12:40 Temperature 97.4 F L Pulse Rate 108 H Respiratory 20 Rate Blood Pressure 156/108 Pulse Ox 99 - Reevaluation(s) Reevaluation #1: 10/16/19 17:16 pt feels better. Medical Decision Making - Lab Data Result diagrams: 10/16/19 12:43 10/16/19 12:43 Lab Results 10/16/19 10/16/19 10/16/19 Range/Units 12:43 12:43 12:43 WBC 8.1 (4.2-12.2) K/uL RBC 5.70 (4.40-5.70) M/uL Hgb 16.0 (14.0-18.0) gm/dl Hct 46.4 (42.0-52.0) % MCV 81.4 (81-97) fl MCH 28.1 (27-33) pg MCHC 34.5 (32-36) g/dl RDW 13.6 (11.5-14.5) % Plt Count 452 H (130-400) K/uL MPV 9.1 (7.4-10.4) fl Gran % 63.7 (47-80) % Lymphocytes % 23.6 (16-45) % Monocytes % 9.5 H (0-9) % Eosinophils % 2.6 (0-6) % Basophils % 0.6 (0-6) % Absolute Neutrophils 5.16 PT 11.0 (9.5-12.1) SECONDS INR 1.1 D-Dimer 0.29 (0-0.59) mg/L FEU VBG pH (7.33-7.43) Sodium 130 L (136-145) mmol/L Potassium 4.5 (3.4-4.5) mmol/L Chloride 95 L (98-107) mmol/L Carbon Dioxide 23.0 (22-29) mmol/L Anion Gap 12.0 (7-16) BUN 15 (8-23) mg/dL Creatinine 0.6 L (0.7-1.2) mg/dL Estimated GFR > 60 mL/min Random Glucose 392 H (74-109) mg/dL Calcium 9.5 (8.8-10.2) mg/dL Total Bilirubin 0.80 (0.2-1.0) mg/dL AST 18 (10.0-50.0) U/L ALT 13 (<41) U/L Alkaline Phosphatase 236 H (40-129) U/L Creatine Kinase 84 (39-308) U/L CK-MB (CK-2) 2.9 (<6.73) ng/mL Troponin T < 0.010 (0-0.010) ng/mL Total Protein 6.9 (6.6-8.7) g/dL Albumin 4.0 (4.0-5.0) g/dL Globulin 2.9 (1.4-4.8) gm/dL Albumin/Globulin Ratio 1.4 (1.1-1.8) Urine Color Urine Appearance Urine pH (5.0-8.0) Ur Specific [place] (1.002-1.030) Urine Protein (NEGATIVE) Urine Glucose (UA) (NEGATIVE) Urine Ketones (NEGATIVE) Urine Blood (NEGATIVE) Urine Nitrite (NEGATIVE) Urine Bilirubin (NEGATIVE) Urine Urobilinogen (0.20 - 1.00) E.U./dL Ur Leukocyte Esterase (NEGATIVE) 10/16/19 10/16/19 10/16/19 Range/Units 14:01 15:30 16:47 WBC (4.2-12.2) K/uL RBC (4.40-5.70) M/uL Hgb (14.0-18.0) gm/dl Hct (42.0-52.0) % MCV (81-97) fl MCH (27-33) pg MCHC (32-36) g/dl RDW (11.5-14.5) % Plt Count (130-400) K/uL MPV (7.4-10.4) fl Gran % (47-80) % Lymphocytes % (16-45) % Monocytes % (0-9) % Eosinophils % (0-6) % Basophils % (0-6) % Absolute Neutrophils PT (9.5-12.1) SECONDS INR D-Dimer (0-0.59) mg/L FEU VBG pH 7.45 H (7.33-7.43) Sodium (136-145) mmol/L Potassium (3.4-4.5) mmol/L Chloride (98-107) mmol/L Carbon Dioxide (22-29) mmol/L Anion Gap (7-16) BUN (8-23) mg/dL Creatinine (0.7-1.2) mg/dL Estimated GFR mL/min Random Glucose (74-109) mg/dL Calcium (8.8-10.2) mg/dL Total Bilirubin (0.2-1.0) mg/dL AST (10.0-50.0) U/L ALT (<41) U/L Alkaline Phosphatase (40-129) U/L Creatine Kinase (39-308) U/L CK-MB (CK-2) (<6.73) ng/mL Troponin T < 0.010 (0-0.010) ng/mL Total Protein (6.6-8.7) g/dL Albumin (4.0-5.0) g/dL Globulin (1.4-4.8) gm/dL Albumin/Globulin Ratio (1.1-1.8) Urine Color Yellow Urine Appearance Clear Urine pH 6.0 (5.0-8.0) Ur Specific [place] 1.010 (1.002-1.030) Urine Protein Negative (NEGATIVE) Urine Glucose (UA) >=1000 mg/dl H (NEGATIVE) Urine Ketones Negative (NEGATIVE) Urine Blood Negative (NEGATIVE) Urine Nitrite Negative (NEGATIVE) Urine Bilirubin Negative (NEGATIVE) Urine Urobilinogen 0.2 (0.20 - 1.00) E.U./dL Ur Leukocyte Esterase Negative (NEGATIVE) Disposition Disposition: Discharge Clinical Impression: Intermittent atrial fibrillation Back pain Qualifiers: Back pain location: thoracic back pain Chronicity: chronic Back pain laterality: midline Qualified Code(s): M54.6 - Pain in thoracic spine; G89.29 - Other chronic pain Disposition: Home, Self-Care Condition: (1) Good Instructions: A-fib (Atrial Fibrillation) (ED), Back Pain (ED) Additional Instructions: follow up with family doctor, return sooner if worse. moist heat to back. follow up with transportation agent tomorrow. take meds as directed Quality - Quality Measures Quality Measures: N/A - Blood Pressure Screening Does Patient Have Any of the Following: Active Dx of HTN Blood Pressure Classification: Hypertensive Reading Systolic Measurement: 156 Diastolic Measurement: 108 Screening for High Blood Pressure: Patient Exclusion, Hx of HTN [G9744]
== END 2019-10-16 17:37 | disposition home or self-care (01) ==
LOC: ER 12:30
DX: I48.0 Paroxysmal atrial fibrillation (principal); M54.9 Dorsalgia, unspecified; G89.29 Other chronic pain; E11.9 Type 2 diabetes mellitus without complications; Z87.891 Personal history of nicotine dependence
CPT/HCPCS: 71046; 80053; 81003; 82550; 82553; 82800; 84484; 85025; 85379; 85610; 93005; 93010; 99284